=== PATIENT | female | born 1955 | race Caucasian/White ===

== ENCOUNTER 2020-05-20 18:22 | Emergency (ER) | payer MEDICARE, OTHER, SELFPAY ==
[2020-05-20 18:24] VITALS: BP 177/89; PULSE 102; RESP 16; TEMP 36.8; O2SAT 100
[2020-05-20 18:40] VITALS: BP 156/81; PULSE 90; RESP 18; TEMP 36.7; O2SAT 97
[2020-05-20 18:46] LABS: Add Urine Microscopic? YES; Appearance Urine Clear (Clear); Bilirubin Urine Negative (Negative); Blood Urine 3+ (Negative); Color Urine Straw (Yellow); Glucose Urine UA Negative (Negative); Ketones Urine Negative (Negative); Leukocyte Esterase Ur 3+ LEU/UL (Negative); Nitrate Urine Negative (Negative); Protein Urine 1+ mg/dL (Negative); RBC Urine 21-50 /hpf (0-2); Specific Grav Ur 1.009 (1.001-1.035); Squamous Epithelial Cell Urine Rare /hpf (Few); Urobilinogen Urine Negative mg/dL (<2.0); WBC Urine >75 /hpf
--- NOTE | 2020-05-20 19:16 | ED.GENADULT ---
HPI - General Adult General Chief complaint: Urogenital-Female Stated complaint: ?? UTI Time Seen by Provider: 05/20/20 19:09 Source: RN notes reviewed History of Present Illness HPI narrative: Patient presents emergency department from home for dysuria. Patient states that patient is been having dysuria since last night. States it feels like previous urinary tract infections. Denies any fevers or chills abdominal pain nausea vomiting or any other symptoms. Patient denies taking previous medication for the symptoms Related Data Allergies Allergy/AdvReac Type Severity Reaction Status Date / Time adhesive Allergy Unknown Verified 11/24/15 15:40 Iodinated Contrast Media Allergy Unknown Verified 11/24/15 15:40 ioversol Allergy Unknown Verified 05/28/19 10:02 Review of Systems Review of Systems: Narrative: Gen.: Denies fevers or chills ENT: Denies congestion Respiratory: Denies shortness of breath or cough CV: Denies chest pain or palpitations GI: Denies abdominal pain nausea, emesis or diarrhea see HPI Musculoskeletal: Denies back pain or muscle pain Neuro: Denies numbness, tingling, weakness or focal weakness Skin: Denies rash Except as documented, all other systems reviewed and negative [facility] Past Medical History Medical History (Updated 05/20/20 @ 19:19 by Javi Brown DO) Patient denies significant medical history Family History Family History (Updated 05/28/19 @ 09:51 by DOCTOR UNKNOWN) Father Hypertension Family history of diabetes mellitus in first degree relative Family history of throat cancer Patient's father is , Onset Age: 7 Mother Hypertension Family history of malignant neoplasm of cervix Family history of renal failure Family history of kidney disease Sibling Family history of malignant neoplasm of breast in first degree relative Social History Social History (Updated 05/20/20 @ 19:18 by Javi Brown DO) Smoking status: Former smoker Alcohol intake: never Exam Narrative: Exam Narrative: APPEARANCE: No acute distress, nontoxic, resting in bed EYES: EOMI HEENT: Normocephalic, atraumatic, OMM RESPIRATORY: No respiratory distress Clear to auscultation bilaterally with no rhonchi wheezing or rales. CARDIOVASCULAR: Regular rate and rhythm without murmurs rubs or gallops. ABDOMINAL: Soft, nontender, nondistended, no rebound or guarding MUSCULOSKELETAl: Moves all extremities. NEURO: Awake and alert. Following commands, speech normal, no focal deficits SKIN:: Warm, dry. No rashes lesions or abrasions PSYCHIATRIC: Normal affect/mood, Course Course Emergency Course: Discussed with patient results of workup and diagnosis. Discussed need for follow-up with primary care, proper use of medication, and reasons to return to the emergency department. Patient understands and agrees to current treatment plan Vital Signs Vital signs: Vital Signs Temperature 98.2 F 05/20/20 18:24 Pulse Rate 102 H 05/20/20 18:24 Respiratory Rate 16 05/20/20 18:24 Blood Pressure 177/89 H 05/20/20 18:24 Pulse Oximetry 100 05/20/20 18:24 Temperature 98.0 F 05/20/20 18:40 Pulse Rate 90 05/20/20 18:40 Respiratory Rate 18 05/20/20 18:40 Blood Pressure 156/81 H 05/20/20 18:40 Pulse Oximetry 97 05/20/20 18:40 Medical Decision Making Vital Signs Vital Signs: Vital Signs Temperature 98.2 F 05/20/20 18:24 Pulse Rate 102 H 05/20/20 18:24 Respiratory Rate 16 05/20/20 18:24 Blood Pressure 177/89 H 05/20/20 18:24 Pulse Oximetry 100 05/20/20 18:24 Temperature 98.0 F 05/20/20 18:40 Pulse Rate 90 05/20/20 18:40 Respiratory Rate 18 05/20/20 18:40 Blood Pressure 156/81 H 05/20/20 18:40 Pulse Oximetry 97 05/20/20 18:40 Lab Data Labs: Lab Results 05/20/20 Range/Units 18:33 Urine Color Straw (Yellow) Urine Appearance Clear (Clear) Urine pH 7.0 (5.0-9.0) Ur Specific [place] 1.009 (1.001-1.
[2020-05-20] MEDS: NITROFURANTOIN MONOHYD MACROCR 100 MG CAP PO (19:35)
[2020-05-20 19:40] VITALS: BP 138/70; PULSE 78; RESP 20; O2SAT 99
== END 2020-05-20 19:42 | disposition home or self-care (01) ==
PROVIDERS: General Practice; Emergency Provider Emergency Medicine; PCP Emergency Medicine
DX: N39.0 Urinary tract infection, site not specified (principal); Z87.891 Personal history of nicotine dependence
CPT/HCPCS: 81001; 87077; 87086; 87088; 87186; 99283; A9270

== ENCOUNTER 2020-07-03 08:56 | Outpatient (CLI) | payer MEDICARE, OTHER, SELFPAY ==
--- NOTE | ~2020-07-03 | DEXA_ITS ---
Bone Density Report Name: Jeanne Lund Age: 64 Sex: Female Ethnicity: White Date of : 1955 Indication: osteopenia; Referring Provider: Kale, Lamin Romero Study: Bone densitometry was performed. Exam Date: July 03, 2020 Accession number: [id number] Bone Density: Region BMD T-score Z-score Classification AP Spine (L1-L4) 0.789 -2.3 -0.5 Osteopenia Femoral Neck (Left) 0.629 -2.0 -0.4 Osteopenia Total Hip (Left) 0.837 -0.9 0.4 Normal Total Hip Bilateral Avg 0.857 -0.7 0.6 Normal Femoral Neck (Right) 0.632 -2.0 -0.4 Osteopenia Total Hip (Right) 0.875 -0.5 0.7 Normal World Health Organization criteria for BMD impression classify patients as: Normal (T-score at or above -1.0), Osteopenia (T-score between -1.0 and -2.5), or Osteoporosis (T-score at or below -2.5). 10-year Fracture Risk(1): Major Osteoporotic Fracture 10% Hip Fracture 1.5% Reported Risk Factors: [place] (), Neck BMD=0.632, BMI=23.6 (1) FRAX(R) Version 3.08. Fracture probability calculated for an untreated patient. Fracture probability may be lower if the patient has received treatment. Previous Exams: Region Exam Age BMD T-score BMD Change BMD Change Date g/cm2 vs Baseline vs Previous AP Spine(L1-L4) 07/03/2020 64 0.789 -2.3 -0.044(-5.3%)* -0.044(-5.3%)* 04/15/2013 57 0.833 -1.9 Total Hip(Left) 07/03/2020 64 0.837 -0.9 -0.009(-1.0%) -0.009(-1.0%) 04/15/2013 57 0.845 -0.8 Total Hip(Right) 07/03/2020 64 0.875 -0.5 0.004(0.4%) 0.004(0.4%) 04/15/2013 57 0.871 -0.6 *Denotes significance at 95% confidence level, LSC for AP Spine = 0.022 g/cm2, LSC for Total Hip = 0.027 g/cm2 Clinical Information Provided by Patient: Has used the following medications: Vitamin D, Calcium Patient maximum height was 68 Menopause Age: 54 Does not regularly consume dairy products Onset of menses at age 11 Number of children 1 Impression: The patient has low bone mass, based on the Total Spine T-score. The patient has an estimated ten-year risk of hip fracture of 1.5% and an estimated ten-year risk of major fracture of 10%, based on the WHO FRAX algorithm. The BMD for the AP Spine(L1-L4) decreased, changing by -5.3% since the last DXA exam. Discussion: BONE DENSITY IS LOW AT ONE OR MORE SKELETAL SITES. This patient's lowest T-score is low at one or more skeletal sites. It meets the World Health Organization's (WHO) criteria for ?low bone mass? (T-
== END 2020-07-03 08:57 | disposition home or self-care (01) ==
PROVIDERS: PCP Emergency Medicine; Visit Provider Internal Medicine Gastroenterology
DX: K74.3 Primary biliary cirrhosis (principal); M85.88 Other specified disorders of bone density and structure, other site; M85.852 Other specified disorders of bone density and structure, left thigh; M85.851 Other specified disorders of bone density and structure, right thigh
CPT/HCPCS: 77080

== ENCOUNTER 2021-01-25 14:50 | Inpatient (IN) | payer MEDICARE, OTHER, SELFPAY ==
--- NOTE | ~2021-01-25 | CT_ITS ---
EXAMINATION: CT abdomen pelvis wo con EXAM DATE: 01/25/2021 15:26 INDICATION: Right flank pain. TECHNIQUE: Spiral CT of the abdomen and pelvis was performed without contrast. Axial, coronal and sag ittal images were reviewed. The dose-length product (DLP) for this examination was 188.08 mGy-cm. T he exposure was tailored according to patient size (auto mA exposure control), and iterative reconstr uction (ASIR) was used as additional dose reduction technique. Comparison is made to prior examinatio n from 02/09/2014. FINDINGS: There is 2 x 4 mm stone at the right ureterovesicular junction, with mild obstructive nephr opathy. There is a right renal fluid density lesion measuring 2.8 cm, most likely a cyst. There is pu nctate right inferior calyceal stone. The uterus is anteverted and morphologically normal. The merry dder is collapsed at time of imaging limiting evaluation. The liver, spleen, adrenal glands and panc reas are unremarkable. There are cholecystectomy clips. There is no retroperitoneal or pelvic lymph adenopathy. The appendix is normal. The stomach and small bowel are unremarkable. There is expected amount of c olonic stool. No free intraperitoneal gas. The heart is normal in size. There are no pericardial or pleural effusions. The lung bases are unremarkable. The bones are unremarkable. IMPRESSION: 1. Right UVJ 2 x 4 mm stone, mild obstructive nephropathy. 2. Punctate right nephrolithiasis. 3. Hysterectomy, cholecystectomy. . Reviewed, dictated and finalized at location A.
--- NOTE | ~2021-01-25 | XR_ITS ---
XR abdomen/kub 1V DATE: 01/25/2021 15:49 INDICATION: Right flank pain. Right ureterovesical junction 2 x 4 mm calculus TECHNIQUE: AP projection, 2 views COMPARISON: 01/25/[address] abdomen pelvis FINDINGS: There is a calcified calculus of the right ureterovesical junction. Surgical clips, right upper quadrant, consistent with cholecystectomy. The psoas shadows are intact. No visceromegaly is evident. No evidence of bowel obstruction. IMPRESSION: Right ureterovesical junction calcified calculus Reviewed, dictated and finalized at Location A. Reviewed, dictated and finalized at location A.
--- NOTE | ~2021-01-25 | XR_ITS ---
EXAMINATION: XR abdomen/kub 1V DATE: 01/26/2021 06:08 INDICATION: Kidney stone. TECHNIQUE: A supine view of the abdomen was obtained. COMPARISON: CT abdomen and pelvis 01/25/2021 FINDINGS: Surgical clips in the right upper quadrant are likely from cholecystectomy. There are no di lated loops of bowel. There is no visible urolithiasis. IMPRESSION: 1. No visible urolithiasis. Reviewed, dictated and finalized at location A. IMPRESSION: 1. No visible urolithiasis.
--- NOTE | ~2021-01-25 | XR_ITS ---
EXAMINATION: XR fluoroscopy no charge EXAM DATE: 01/26/2021 08:15 INDICATION: Stone extraction right side. TECHNIQUE: Fluoroscopy used during XR fluoroscopy no charge performed by Dr. Chip Cespedes MD. The DAP for this procedure was 92 radcm2. FINDINGS: Right ureter was cannulated and reportedly stone extracted. Cholecystectomy clips. Correla te with procedure note. IMPRESSION: Fluoroscopy used during right ureteral stone extraction. Reviewed, dictated and finalized at location A.
[2021-01-25 14:59] VITALS: BP 144/53; PULSE 65; RESP 16; TEMP 36.5; O2SAT 98
[2021-01-25 15:11] LABS: Add Urine Microscopic? YES; Appearance Urine Cloudy (Clear); Bilirubin Urine Negative (Negative); Blood Urine 1+ (Negative); Color Urine Yellow (Yellow); Glucose Urine UA Negative (Negative); Ketones Urine Negative (Negative); Leukocyte Esterase Ur 2+ LEU/UL (Negative); Mucus Urine Few /lpf; Nitrate Urine Negative (Negative); Protein Urine 1+ mg/dL (Negative); RBC Urine 21-50 /hpf (0-2); Squamous Epithelial Cell Urine Few /hpf (Few); Transitional Epi Cells Urine Rare /hpf (None Seen); WBC Urine 21-30 /hpf
--- NOTE | 2021-01-25 15:14 | ED.GENADULT ---
HPI - General Adult General Chief complaint: Abdominal Pain Stated complaint: r flank pain Time Seen by Provider: 01/25/21 14:54 Source: RN notes reviewed History of Present Illness HPI narrative: Patient presents emergency department from home for right-sided flank pain. Patient states pain began suddenly approximately 1 PM today pain located in the right flank and radiates around to the right side of the abdomen associated with nausea. Denies any fevers or chills chest pain shortness of breath or any other symptoms. States she took no previous pain medication for the symptoms Related Data Home Medications Medication Instructions Recorded Confirmed ursodiol 300 mg capsule See Rx Instructions .ROUTE .COMPLEX 05/27/20 Allergies Allergy/AdvReac Type Severity Reaction Status Date / Time adhesive Allergy Unknown Blister Verified 01/25/21 15:33 Iodinated Contrast Media Allergy Unknown Anxiety Verified 01/25/21 15:33 ioversol Allergy Unknown Unknown Verified 01/25/21 15:33 Review of Systems Review of Systems: Narrative: Gen.: Denies fevers or chills ENT: Denies congestion Respiratory: Denies shortness of breath or cough CV: Denies chest pain or palpitations GI: See HPI denies burning, urgency, frequency or hematuria Musculoskeletal: Denies back pain or muscle pain Neuro: Denies numbness, tingling, weakness or focal weakness Skin: Denies rash Except as documented, all other systems reviewed and negative [facility] Past Medical History Medical History Patient denies significant medical history Family History Family History (Updated 05/28/19 @ 09:51 by DOCTOR UNKNOWN) Father Hypertension Family history of diabetes mellitus in first degree relative Family history of throat cancer Patient's father is , Onset Age: 7 Mother Hypertension Family history of malignant neoplasm of cervix Family history of renal failure Family history of kidney disease Sibling Family history of malignant neoplasm of breast in first degree relative Social History Social History Smoking status: Former smoker Alcohol intake: never Gender identity (if verbalized by the patient): Female Exam Narrative: Exam Narrative: APPEARANCE: No acute distress, nontoxic, resting in bed EYES: EOMI HEENT: Normocephalic, atraumatic, OMM RESPIRATORY: No respiratory distress Clear to auscultation bilaterally with no rhonchi wheezing or rales. CARDIOVASCULAR: Regular rate and rhythm without murmurs rubs or gallops. ABDOMINAL: Soft, nontender, nondistended, no rebound or guarding, right flank tenderness MUSCULOSKELETAl: Moves all extremities. No clubbing, cyanosis or edema. NEURO: Awake and alert. Following commands, speech normal, no focal deficits SKIN:: Warm, dry. No rashes lesions or abrasions PSYCHIATRIC: Normal affect/mood, Course Course Emergency Course: Discussed with Dr. Feliciano for urology presentation work-up at this time recommends admission to his service with admission under Dr. Cespedes Discussed with patient and family results of workup and diagnosis. Discussed need for admission. Patient and family understand and agree to current treatment plan Dr. Feliciano came to the emergency department to evaluate the patient Vital Signs Vital signs: Vital Signs Temperature 97.7 F 01/25/21 14:59 Pulse Rate 65 01/25/21 14:59 Respiratory Rate 16 01/25/21 14:59 Blood Pressure 144/53 H 01/25/21 14:59 Pulse Oximetry 98 01/25/21 14:59 Temperature 97.7 F 01/25/21 14:59 Pulse Rate 74 01/25/21 15:43 Respiratory Rate 18 01/25/21 15:43 Blood Pressure 155/76 H 01/25/21 15:43 Pulse Oximetry 100 01/25/21 15:43 Medical Decision Making Vital Signs Vital Signs: Vital Signs Temperature 97.7 F 01/25/21 14:59 Pulse Rate 65 01/25/21 14:59 Respiratory Rate 16 01/25/21 14:59
--- NOTE | 2021-01-25 15:23 | PC.NURSE ---
Pt taken to CT via stretcher at this time.
[2021-01-25 15:25] LABS: Basophils Percent Auto 0.7 % (0.2-1.2); Eosinophils Absolute Auto 0.1 K/mm3 (0-0.3); Eosinophils Percent Auto 1.3 % (0-4.4); Hematocrit 39.3 % (37.0-47.0); Hemoglobin 13.6 g/dL (12.0-15.0); Immature Granulocyte Absolute 0.01 K/mm3 (0.00-0.031); Immature Granulocyte Percent A 0.2 % (0-0.5); Lymphocytes Absolute Auto 1.91 K/mm3 (0.9-3.2); Mean Corpuscular HGB Conc 34.6 g/dl (32-36); Mean Corpuscular Hemoglobin 31.4 pg (26-34); Mean Corpuscular Volume 90.8 fl (80-100); Mean Platelet Volume 9.4 fl (7.4-10.4); Monocytes Absolute Auto 0.6 K/mm3 (0.1-0.6); Monocytes Percent Auto 9.2 % (2.6-8.5); Neutrophils Absolute Auto 3.4 K/mm3 (1.3-6.7); Neutrophils Percent Auto 56.6 % (45.5-73.1); Platelet Count Result 245 k/mm3 (150-375); Red Blood Count 4.33 M/mm3 (4.2-5.4); Red Cell Distribution Width 11.3 % (11.5-14.5)
[2021-01-25] MEDS: SODIUM CHLORIDE 0.9% IV 1,000 ML 999 ML IV CONT (15:34)
[2021-01-25] MEDS: ONDANSETRON INJ 4 MG/2 ML VIAL IV PUSH (15:35)
[2021-01-25] MEDS: MORPHINE SULFATE (*CRX) 4 MG/ML INJ IV PUSH (15:35)
[2021-01-25 15:39] LABS: Alanine Aminotransferase 23 U/L (4-35); Albumin Level 4.2 g/dL (3.5-5.1); Alkaline Phosphatase 95 U/L (38-126); Anion Gap 5 mmol/L (8-16); Aspartate Amino Transferase 29 U/L (14-36); Bilirubin,Total 0.3 mg/dL (0.2-1.3); Blood Urea Nitrogen 26 mg/dL (7-17); Calcium 9.6 mg/dL (8.4-10.2); Carbon Dioxide 30 mmol/L (22-30); Chloride 104 mmol/L (98-107); Estimated CRCL calculation 79 ml/min; Estimated Glomerular Filt Rate > 60; Glucose 125 mg/dL (65-105); Lipase 212 U/L (23-300); Potassium 3.7 mmol/L (3.4-5.0); Sodium 139 mmol/L (137-145)
[2021-01-25 15:43] VITALS: BP 155/76; PULSE 74; RESP 18; O2SAT 100
[2021-01-25] MEDS: KETOROLAC 30 MG/ML VIAL (*BKC) IV PUSH (15:55)
[2021-01-25] MEDS: TAMSULOSIN HCL 0.4 MG CAPSULE PO (15:55)
--- NOTE | 2021-01-25 16:31 | PM.IMHP ---
H&P: HPI History of Present Illness Date/Time: 01/25/21 16:31 This is a 65 year old female with no prior history of stone disease. She had acute onset of right flank pain this afternoon. She had some nausea without vomiting. She had no fevers, no chills, no symptoms of urinary tract infection. She presented to the emergency room. A CT scan was done. She has a 4 x 2 mm right distal ureteral stone with some hydronephrosis. She also has an abnormal urinalysis but no clear symptoms of infection. Of note she did have a bladder infection a few months ago and was seen here at [place]. She will be admitted overnight for antibiotics and a trial of conservative stone passage. Would consider likely intervention tomorrow should the stone failed to pass considering her abnormal urinalysis Chief Complaint: Ureteral stone Review of Systems Review of Systems: All systems reviewed & are unremarkable except as noted in HPI and below PMFSH Past Medical History Medical History Patient denies significant medical history Family History Family History (Updated 05/28/19 @ 09:51 by DOCTOR UNKNOWN) Father Hypertension Family history of diabetes mellitus in first degree relative Family history of throat cancer Patient's father is , Onset Age: 7 Mother Hypertension Family history of malignant neoplasm of cervix Family history of renal failure Family history of kidney disease Sibling Family history of malignant neoplasm of breast in first degree relative Social History Social History Smoking status: Former smoker Alcohol intake: never Gender identity (if verbalized by the patient): Female Meds Home Medications and Allergies Home Medications Medication Instructions Recorded Confirmed Type ursodiol 300 mg capsule See Rx Instructions .ROUTE .COMPLEX 05/27/20 History nitrofurantoin 100 mg PO Q12H 7 Days #14 cap 12/18/20 Rx monohydrate/macrocrystals 100 mg capsule Allergies Allergy/AdvReac Type Severity Reaction Status Date / Time adhesive Allergy Unknown Blister Verified 01/25/21 15:33 Iodinated Contrast Media Allergy Unknown Anxiety Verified 01/25/21 15:33 ioversol Allergy Unknown Unknown Verified 01/25/21 15:33 Vital Signs Vital Signs - 24 hr 01/25/21 14:59 01/25/21 15:43 Temperature 97.7 F Pulse Rate 65 74 Respiratory Rate 16 18 Blood Pressure 144/53 H 155/76 H Pulse Oximetry 98 100 Exam Const: General: cooperative, healthy appearing, no acute distress, alert, awake and Physically active Nutritional Appearance: thin Orientation/consciousness: patient oriented x3 Limitations: no limitations and No altered mental status HENMT: Head: normal to inspection Ears: hearing grossly normal bilaterally General nose exam: Normal external nose present Eyes: General: appearance normal, both eyes and all related structures Resp: Effort & Inspection: normal respiratory effort and able to speak in complete sentences GI: Inspection: normal to inspection GI Palp: No abdominal tenderness Back/Spine/Pelvis: Back: No CVA tenderness Skin: General skin exam: normal color and no rashes or lesions noted Neuro: General: oriented to person, oriented to place, oriented to time and patient oriented x3 Extrem: General: normal to inspection Psych: Appearance: grossly normal H&P: Results Labs Labs: Short CBC 01/25/21 Range/Units 15:19 WBC 6.0 (4.5-10.0) K/mm3 Hgb 13.6 (12.0-15.0) g/dL Hct 39.3 (37.0-47.0) % Plt Count 245 (150-375) k/mm3 BMP 01/25/21 15:19 Sodium 139 Potassium 3.7 Chloride 104 Carbon Dioxide 30 BUN 26 H Creatinine 0.60 L Glucose 125 H Calcium 9.6 Liver Function 01/25/21 Range/Units 15:19 Total Bilirubin 0.3 (0.2-1.3) mg/dL AST 29 (14-36) U/L ALT 23 (4-35) U/L Alkaline Phosphatase 95 (
[2021-01-25 16:38] VITALS: BP 152/71; PULSE 69; RESP 17; O2SAT 98
[2021-01-25] MEDS: SODIUM CHLORIDE 0.9% IV 1,000 ML 100 ML IV CONT (17:40)
--- NOTE | 2021-01-25 17:45 | PC.NURSE ---
Report called to 3rd Med. ySkes RN to notify this RN when room is clean.
[2021-01-25 17:50] VITALS: BP 146/63; PULSE 77; RESP 14; O2SAT 93
--- NOTE | 2021-01-25 18:14 | PC.NURSE ---
Pt reports pain is increasing, declined morphine prn order at this time.
[2021-01-25 18:43] VITALS: BP 123/43; PULSE 69; RESP 14; O2SAT 97
--- NOTE | 2021-01-25 18:54 | ADMGEN ---
This patient, Jeanne Lund, was admitted to Medical Room 340-01. Patient/family oriented to hospital policies and general routines including ID bracelet, bed and alarms, visiting hours, pain management, procedures, bathroom and other care routines, personal items, smoking policy, room service/diet, and visiting hours. Information on how to activate the Rapid Response Team has been discussed. Patient/Family are encouraged to report perceived risks to care and to ask questions if they do not understand what they are told or what they should do.
[2021-01-25 19:59] VITALS: BP 151/72; PULSE 76; RESP 16; TEMP 36.6; O2SAT 100
[2021-01-26] VITALS (9 sets, daily range): BP systolic 127–148; BP diastolic 60–97; PULSE 65–92; RESP 12–18; TEMP 36–36.7; O2SAT 96–100
[2021-01-26] MEDS: SODIUM CHLORIDE 0.9% IV 1,000 ML 100 ML IV CONT (03:25)
[2021-01-26 05:50] LABS: Basophils Percent Auto 0.7 % (0.2-1.2); Eosinophils Absolute Auto 0.1 K/mm3 (0-0.3); Eosinophils Percent Auto 1.8 % (0-4.4); Hematocrit 35.9 % (37.0-47.0); Hemoglobin 11.8 g/dL (12.0-15.0); Immature Granulocyte Absolute 0.02 K/mm3 (0.00-0.031); Immature Granulocyte Percent A 0.4 % (0-0.5); Lymphocytes Absolute Auto 1.87 K/mm3 (0.9-3.2); Lymphocytes Percent Auto 32.9 % (18.3-44.2); Mean Corpuscular HGB Conc 32.9 g/dl (32-36); Mean Corpuscular Hemoglobin 30.6 pg (26-34); Mean Platelet Volume 9.5 fl (7.4-10.4); Monocytes Absolute Auto 0.5 K/mm3 (0.1-0.6); Monocytes Percent Auto 9.5 % (2.6-8.5); Neutrophils Absolute Auto 3.1 K/mm3 (1.3-6.7); Neutrophils Percent Auto 54.7 % (45.5-73.1); Platelet Count Result 193 k/mm3 (150-375); Red Blood Count 3.86 M/mm3 (4.2-5.4); Red Cell Distribution Width 11.5 % (11.5-14.5); White Blood Count 5.7 K/mm3 (4.5-10.0)
[2021-01-26 06:12] LABS: Anion Gap 0 mmol/L (8-16); Blood Urea Nitrogen 20 mg/dL (7-17); Calcium 8.6 mg/dL (8.4-10.2); Carbon Dioxide 33 mmol/L (22-30); Chloride 108 mmol/L (98-107); Estimated CRCL calculation 61 ml/min; Estimated Glomerular Filt Rate > 60; Glucose 89 mg/dL (65-105); Potassium 4.1 mmol/L (3.4-5.0); Sodium 141 mmol/L (137-145)
--- NOTE | 2021-01-26 06:56 | P.HPUP_ITS ---
History and Physical Update Update Date/Time: 01/26/21 06:56 KUB this morning: stone not visualized but entire ureter not imaged. Will proceed with plans for cysto., right ureteroscopy with stone extraction. History and Physical has been reviewed, including an updated exam of the patie nt. There are NO changes in the patient's condition. Risks, benefits, and alternatives have been discussed and questions answered. Patient agrees to proceed with procedure.
--- NOTE | 2021-01-26 07:17 | WPDANESEPPF ---
Anes - Initial Pre Proc Eval Procedure: Operation Date: 01/26/21 14:00 Proposed Procedures p Cystoscopy,Right Ureteroscopy With Stone Extraction - Chip Cespedes MD Date/Time: 01/26/21 07:17 Surgeon: Chip Cespedes MD Pre Op Diagnosis: R kidney stone/UTI Patient Data Age: 65 Gender: F Height: 1.73 m Weight: 69.8 kg Last Vital Signs Temp 36.4 C 01/26/21 04:08 Pulse 92 01/26/21 04:08 Resp 18 01/26/21 04:08 BP 143/64 H 01/26/21 04:08 Pulse Ox 97 01/26/21 04:08 Allergies Allergy/AdvReac Type Severity Reaction Status Date / Time adhesive Allergy Unknown Blister Verified 01/25/21 15:33 Iodinated Contrast Media Allergy Unknown Anxiety Verified 01/25/21 19:00 ioversol Allergy Unknown Unknown Verified 01/25/21 15:33 Home Medications Medication Instructions Recorded Confirmed Type ursodiol 300 mg capsule See Rx Instructions .ROUTE .COMPLEX 05/27/20 01/25/21 History hydrocodone-acetaminophen 1 - 2 tablet PO Q6H PRN #20 tablet 01/26/21 Rx tramadol 50 mg PO Q6H PRN #20 tablet 01/26/21 Rx Laboratory Tests 01/25/21 01/25/21 01/25/21 15:01 15:19 15:19 WBC 6.0 K/mm3 K/mm3 (4.5-10.0) RBC 4.33 M/mm3 M/mm3 (4.2-5.4) Hgb 13.6 g/dL g/dL (12.0-15.0) Hct 39.3 % % (37.0-47.0) MCV 90.8 fl fl (80-100) MCH 31.4 pg pg (26-34) MCHC 34.6 g/dl g/dl (32-36) RDW 11.3 % L % (11.5-14.5) Plt Count 245 k/mm3 k/mm3 (150-375) MPV 9.4 fl fl (7.4-10.4) Immature Gran % (Auto) 0.2 % % (0-0.5) Neut % (Auto) 56.6 % % (45.5-73.1) Lymph % (Auto) 32.0 % % (18.3-44.2) [place] % (Auto) 9.2 % H % (2.6-8.5) Eos % (Auto) 1.3 % % (0-4.4) Baso % (Auto) 0.7 % % (0.2-1.2) Lymph # (Auto) 1.91 K/mm3 K/mm3 (0.9-3.2) [place] # (Auto) 0.6 K/mm3 K/mm3 (0.1-0.6) Eos # (Auto) 0.1 K/mm3 K/mm3 (0-0.3) Baso # (Auto) 0.0 K/mm3 K/mm3 (0.0-0.1) Abs Immat Gran (auto) 0.01 K/mm3 K/mm3 (0.00-0.031) Absolute Neuts (auto) 3.4 K/mm3 K/mm3 (1.3-6.7) Absolute Nucleated RBC 0.0 K/mm3 K/mm3 (0.0-0.012) Nucleated RBC % 0.0 % % (0.0-0.2) Sodium 139 mmol/L mmol/L (137-145) Potassium 3.7 mmol/L mmol/L (3.4-5.0) Chloride 104 mmol/L mmol/L (98-107) Carbon Dioxide 30 mmol/L mmol/L (22-30) Anion Gap 5 mmol/L L mmol/L (8-16) BUN 26 mg/dL H mg/dL (7-17) Creatinine 0.60 mg/dL L mg/dL (0.7-1.0) Estim Creat Clear Calc 79 ml/min ml/min Estimated GFR > 60 (59 - ) Glucose 125 mg/dL H mg/dL (65-105) Calcium 9.6 mg/dL mg/dL (8.4-10.2) Total Bilirubin 0.3 mg/dL mg/dL (0.2-1.3) AST 29 U/L U/L (14-36) ALT 23 U/L U/L (4-35) Alkaline Phosphatase 95 U/L U/L (38-126) Total Protein 7.0 g/dL g/dL (6.3-8.2) Albumin 4.2 g/dL g/dL (3.5-5.1) Lipase 212 U/L U/L (23-300) Urine Color Yellow (Yellow) Urine Appearance Cloudy H (Clear) Urine pH 5.0 (5.0-9.0) Ur Specific [place] 1.020 (1.001-1.035) Urine Protein 1+ mg/dL H mg/dL (Negative) Urine Glucose (UA) Negative mg/dL mg/dL (Negative) Urine Ketones Negative mg/dL mg/dL (Negative) Ur Blood (Man) 1+ H (Negative) Urine Nitrate Negative (Negative) Urine Bilirubin Negative (Negative) Urine Urobilinogen 2.0 mg/dL H mg/dL (<2.0) Leukocyte Esterase Rfl 2+ ARETHA/UL H ARETHA/UL (Negative) Urine RBC 21-50 /hpf H /hpf (0-2) Urine WBC 21-30 /hpf H /hpf Ur Squamous Epith Cells Few /hpf /hpf (Few) Ur Transition Epith Cell Rare /hpf /hpf (None Seen) Hyaline Casts 1-2 /lpf
--- NOTE | 2021-01-26 07:29 | ECG_ITS ---
Measurements Intervals [place] Rate: 78 P: 76 OK: 166 QRS: 51 QRSD: 94 T: 7 QT: 376 QTc: 431 Interpretive Statements SINUS RHYTHM POSSIBLE LEFT ATRIAL ENLARGEMENT BORDERLINE ST-T WAVE ABNORMALITY- INF/LAT LEADS BORDERLINE ECG Electronically Signed On 01-26-2021 8:07:59 CDT by Billy Lee D.O.
[2021-01-26] MEDS: LACTATED RINGERS 1,000 ML 30 ML IV CONT (07:45)
[2021-01-26] MEDS: LIDOCAINE HCL 2% GEL UROJET 10 ML PKG MUCOUS MEM (07:57)
[2021-01-26] MEDS: KETOROLAC 30 MG/ML VIAL (*BKC) IV PUSH (08:11)
--- NOTE | 2021-01-26 08:12 | P.OP_ITS ---
Procedure Note - Detailed Date of procedure: 01/26/21 Pre-op diagnosis: Right ureteral stone Post-op diagnosis: same Procedure performed: Cystoscopy, right ureteroscopy with stone extraction Description of procedure: The patient was brought to the operative suite where she is prepped and draped in a routine sterile fashion while in the dorsal lithotomy position after the uneventful induction of a general LMA anesthetic. A 19F rigid cystoscope was placed in the bladder. The patient had no evidence of urethral stricture or bladder neck contracture. The bladder mucosa was endoscopically normal without hyperemia or neoplasm. There was a single, orthotopic ureteral orifice bilaterally. A 0.035 glidewire was advanced into the right renal pelvis under fluoroscopy. The distal ureter was dilated with an 8F/10F ureteral dilator. Ureteroscopy was undertaken with a short, tapered, semi-rigid ureteroscope and the stone was extracted with ease using a 1.9F Escape disposable stone basket. Due to the ease of this manipulation I opted n ot to place a ureteral stent. The patient's bladder was emptied and was taken to the recovery room having tolerated this procedure well. Anesthesia: GLMA Surgeon: Chip Cespedes MD Drains: No Packing: No Pathology: yes Complications: No immediate complications Condition: stable Disposition: PACU
--- NOTE | 2021-01-26 08:18 | PM.DS ---
DS: Admitting Diagnosis Admitting Diagnosis Admitting Diagnosis: Right distal ureteral calculus DS: Summary Hospital Course Hospital Course: patient was admitted to the ER late on Monday afternoon with renal colic and imaging showing a small distal ureteral calculus. She had a possible UTI. She was given ceftriaxone. She never developed fevers significant leukocytosis. The following morning she underwent endoscopic stone extraction. This was straightforward and a stent was not placed. Time Spent with Patient Time attestation: Total time spent providing and/or coordinating discharge services: 15min Exam Const: General: no acute distress Resp: Effort & Inspection: normal respiratory effort GI: Inspection: non-distended GI Palp: No abdominal tenderness and No Guarding due to palpation present (GI) Auscultation: normal bowel sounds DS: Data Data Completed and Pending Pending studies at discharge: Pending at discharge 01/26/21 08:05 Surgical [PTH] Routine Labs on day of discharge: Labs from last 24 hours 01/26/21 01/26/21 01/25/21 05:32 05:32 15:19 WBC 5.7 RBC 3.86 L Hgb 11.8 L Hct 35.9 L MCV 93.0 MCH 30.6 MCHC 32.9 RDW 11.5 Plt Count 193 MPV 9.5 Immature Gran % (Auto) 0.4 Neut % (Auto) 54.7 Lymph % (Auto) 32.9 Randolph % (Auto) 9.5 H Eos % (Auto) 1.8 Baso % (Auto) 0.7 Lymph # (Auto) 1.87 Randolph # (Auto) 0.5 Eos # (Auto) 0.1 Baso # (Auto) 0.0 Abs Immat Gran (auto) 0.02 Absolute Neuts (auto) 3.1 Absolute Nucleated RBC 0.0 Nucleated RBC % 0.0 Sodium 141 139 Potassium 4.1 3.7 Chloride 108 H 104 Carbon Dioxide 33 H 30 Anion Gap 0 L 5 L BUN 20 H 26 H Creatinine 0.80 0.60 L Estim Creat Clear Calc 61 79 Estimated GFR > 60 > 60 Glucose 89 125 H Calcium 8.6 9.6 Total Bilirubin 0.3 AST 29 ALT 23 Alkaline Phosphatase 95 Total Protein 7.0 Albumin 4.2 Lipase 212 Urine Color Urine Appearance Urine pH Ur Specific Lamar Urine Protein Urine Glucose (UA) Urine Ketones Ur Blood (Man) Urine Nitrate Urine Bilirubin Urine Urobilinogen Leukocyte Esterase Rfl Urine RBC Urine WBC Ur Squamous Epith Cells Ur Transition Epith Cell Hyaline Casts Urine Mucus 01/25/21 01/25/21 15:19 15:01 WBC 6.0 RBC 4.33 Hgb 13.6 Hct 39.3 MCV 90.8 MCH 31.4 MCHC 34.6 RDW 11.3 L Plt Count 245 MPV 9.4 Immature Gran % (Auto) 0.2 Neut % (Auto) 56.6 Lymph % (Auto) 32.0 Randolph % (Auto) 9.2 H Eos % (Auto) 1.3 Baso % (Auto) 0.7 Lymph # (Auto) 1.91 Randolph # (Auto) 0.6 Eos # (Auto) 0.1 Baso # (Auto) 0.0 Abs Immat Gran (auto) 0.01 Absolute Neuts (auto) 3.4 Absolute Nucleated RBC 0.0 Nucleated RBC % 0.0 Sodium Potassium Chloride Carbon Dioxide Anion Gap BUN Creatinine Estim Creat Clear Calc Estimated GFR Glucose Calcium Total Bilirubin AST ALT Alkaline Phosphatase Total Protein Albumin Lipase Urine Color Yellow Urine Appearance Cloudy H Urine pH 5.0 Ur Specific Lamar 1.020 Urine Protein 1+ H Urine Glucose (UA) Negative Urine Ketones Negative Ur Blood (Man) 1+ H Urine Nitrate Negative Urine Bilirubin Negative Urine Urobilinogen 2.0 H Leukocyte Esterase Rfl 2+ H Urine RBC 21-50 H Urine WBC 21-30 H Ur Squamous Epith Cells Few Ur Transition Epith Cell Rare Hyaline Casts 1-2 Urine Mucus Few H Discharge Plan Discharge Attending physician on discharge: Chip Cespedes Discharging Clinician: Chip Cespedes Anticipated Discharge Date/Time: 01/26/21 06:58 Patient Disposition: Home, Self-Care Activity: other - see discharge instructions Diet: other - see discharge instructions Discharge Instructions: 1) Activity: no driving or important decisions x24 hours. 2) Diet: resume your norm
== END 2021-01-26 11:18 | disposition home or self-care (01) | DRG 669 ==
LOC: ANHED 16:33 → ANH3MED 17:37
PROVIDERS: Admitting Provider Urology; Emergency Provider Emergency Medicine; PCP Emergency Medicine; Visit Provider Urology
PROC: 0TC68ZZ Extirpation of Matter from Right Ureter, Via Natural or Artificial Opening Endoscopic (ICD-10-PCS; CPT 52352; principal; 2021-01-26 14:00)
DX: N20.1 Calculus of ureter (principal); N39.0 Urinary tract infection, site not specified; Z87.891 Personal history of nicotine dependence
CPT/HCPCS: 36415; 74018; 74176; 80048; 80053; 81001; 82365; 83690; 85025; 87086; 88300; 93005; 96361; 96374; 96375; 99285; A9270; C1769; J0696; J1100; J1885; J2270; J2405; J2704; J3010; J7030; J7120

== ENCOUNTER 2021-10-26 09:38 | Outpatient (CLI) | payer MEDICARE, OTHER, SELFPAY ==
--- NOTE | ~2021-10-26 | XR_ITS ---
EXAMINATION: XR abdomen/kub 1V EXAM DATE: 10/26/2021 10:03 INDICATION: History of kidney stones months ago. Follow-up exam. TECHNIQUE: Frontal projection of the upper abdomen, frontal projection lower abdomen/pelvis for inter pretation. Comparison is made to prior examination from 01/26/2021. FINDINGS: There is moderate amount of colonic stool and gas. No small bowel dilation, nonobstructiv e bowel gas pattern. There are no suspicious calcifications identified. There is no organomegaly suspected. The bones are unremarkable. Lung bases unremarkable. There are cholecystectomy clips. IMPRESSION: Moderate amount of colonic stool. Reviewed, dictated and finalized at location B. 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
== END 2021-10-26 09:39 | disposition home or self-care (01) ==
PROVIDERS: PCP Emergency Medicine; Visit Provider Urology
DX: Z87.442 Personal history of urinary calculi (principal)
CPT/HCPCS: 74018

== ENCOUNTER → 2022-07-12 08:41 | Outpatient (CLI) | payer MEDICARE, OTHER, SELFPAY ==
--- NOTE | ~2022-07-12 | DEXA_ITS ---
Bone Density Report Name: BYRON FERNANDES Age: 66 Sex: Female Ethnicity: White Date of : 1955 Indication: postmenopausal; screening for osteoporosis; height loss; Referring Provider: DOUG, POLY Romero Study: Bone densitometry was performed. Exam Date: July 12, 2022 Accession number: [id number] Bone Density: Region BMD T-score Z-score Classification AP Spine (L1-L4) 0.800 -2.2 -0.3 Osteopenia Femoral Neck (Left) 0.626 -2.0 -0.4 Osteopenia Total Hip (Left) 0.798 -1.2 0.2 Osteopenia Femoral Neck (Right) 0.642 -1.9 -0.2 Osteopenia Total Hip (Right) 0.828 -0.9 0.4 Normal Total Hip Mean 0.813 -1.1 0.3 Osteopenia World Health Organization criteria for BMD impression classify patients as: Normal (T-score at or above -1.0), Osteopenia (T-score between -1.0 and -2.5), or Osteoporosis (T-score at or below -2.5). 10-year Fracture Risk(1): Major Osteoporotic Fracture 11% Hip Fracture 1.8% Reported Risk Factors: [place] (), Neck BMD=0.626, BMI=23.8 (1) FRAX(R) Version 3.08. Fracture probability calculated for an untreated patient. Fracture probability may be lower if the patient has received treatment. Clinical Information Provided by Patient: Has used the following medications: Vitamin D, Calcium, ursodiol Patient maximum height was 68.5 Menopause Age: 54 Does not regularly consume dairy products Drinks caffeinated beverages Onset of menses at age 11 Number of children 1 Impression: The patient has low bone mass, based on the Total Spine T-score. The patient has an estimated ten-year risk of hip fracture of 1.8% and an estimated ten-year risk of major fracture of 11%, based on the WHO FRAX algorithm. Discussion: BONE DENSITY IS LOW AT ONE OR MORE SKELETAL SITES. This patient's lowest T-score is low at one or more skeletal sites. It meets the World Health Organization's (WHO) criteria for ?low bone mass? (T-score between -1.0 and -2.5). The patient's 10-year risk of fracture as calculated by FRAX is less than the threshold where pharmacological therapy is recommended by the National Osteoporosis Foundation (NOF). However, all treatment decisions require clinical judgment and consideration of individual patient factors, including patient preferences, comorbidities, previous drug use, risk factors not captured in the FRAX model (e.g., frailty, falls, vitamin D deficiency, increased bone turnover, interval significant decline in bone density) and possible under or overestimation of fracture risk by FRAX. The patient should follow a healthful lifestyle (good nutrition with adequate calcium and vitamin D, and appropriate weight-bearing exercise). Follow-Up: Consider repeating this study in 2 to 3 years to reassess this patient's status, or sooner if there is some new clinical indication.
== END ==
PROVIDERS: PCP Internal Medicine; Visit Provider Internal Medicine Gastroenterology
DX: K74.3 Primary biliary cirrhosis (principal); M85.88 Other specified disorders of bone density and structure, other site; M85.852 Other specified disorders of bone density and structure, left thigh; M85.851 Other specified disorders of bone density and structure, right thigh
CPT/HCPCS: 77080

== ENCOUNTER 2022-10-25 09:26 | Outpatient (CLI) | payer MEDICARE, OTHER, SELFPAY ==
--- NOTE | ~2022-10-25 | XR_ITS ---
Supine and upright views of the abdomen Clinical history: Right nephrolithiasis COMPARISON: 10/26/2021 Findings: Bowel gas pattern is nonspecific. Cholecystectomy clips noted. No evidence for obstruction or free air. No abnormal mass lesion or calcification is seen. Osseous structures are intact. Impression: No renal stone identified. Reviewed, dictated and finalized at location [] MOLDING MACHINE OPERATOR Impression: No renal stone identified.
== END 2022-10-25 09:27 | disposition home or self-care (01) ==
PROVIDERS: PCP Internal Medicine; Visit Provider Urology
DX: N20.0 Calculus of kidney (principal)
CPT/HCPCS: 74018

== ENCOUNTER 2023-01-05 10:20 | Observation (INO) | payer MEDICARE, OTHER, SELFPAY ==
[2023-01-05] VITALS (38 sets, daily range): BP systolic 130–192; BP diastolic 70–100; PULSE 76–103; RESP 12–27; TEMP 36.3–36.9; O2SAT 97–100; BMI 23.6
--- NOTE | 2023-01-05 | ECHO_ITS ---
Patient Info Name: Jeanne Lund Age: 67 years : 1955 Gender: Female Ht: 68 in Wt: 155 lbs BSA: 1.84 m2 HR: 97 bpm BP: 163 / 85 mmHg Technical Quality: Good Exam Date: 01/05/2023 2:48 PM Exam Location: [facility] Pulmonary Exam Room: ED 2 Patient Status: Outpatient Admit Date: 01/05/2023 Staff Ordering Physician: Esperanza Quintana NP Office Nurse Practitioner: Jenny Bond RDCS Attending Provider: Liz Tomlinson DO Referring Physician: Lilian COX; Exam Type: CA echo doppler w bubble study Study Info Indications - TIA Complete two-dimensional, color flow and Doppler transthoracic echocardiogram is performed with agitated saline. Contrast/Agitated Saline Contrast/Ag. Saline: Agitated Saline Amount: 20.00 ml Administered By: Lizette Gonzalez RDCS Existing IV Access: Yes IV Access Condition: patent with no signs of infiltration Summary 1. Left ventricular chamber dimension is normal. 2. Left ventricular systolic function is hyperdynamic, estimated at >70%. 3. The left ventricular diastolic function is grade I diastolic dysfunction. 4. E/e' 11 is mildly elevated. 5. There is moderate aortic valve sclerosis. 6. There is trace tricuspid valve regurgitation. 7. No pulmonary hypertension, estimated pulmonary arterial systolic pressure is 28 mmHg. 8. There is trivial pericardial effusion. Left Ventricle E/e' 11 is mildly elevated. Left ventricular chamber dimension is normal. Left ventricular systolic function is hyperdynamic, estimated at >70%. The left ventricular diastolic function is grade I diastolic dysfunction. Right Ventricle Right ventricular chamber dimension is normal. Right ventricular systolic function is normal. Left Atria Left atrial chamber dimension is normal. Right Atria Right atrial chamber dimension is normal. Atrial Septum Agitated saline injection with and without valsalva maneuver opacified right side cardiac chambers without shunt to left side cardiac chambers. Intact interatrial septum visualized by 2D and agitated saline imaging. Aortic Valve The aortic valve is trileaflet. There is moderate aortic valve sclerosis. There is no aortic valve stenosis. There is no aortic valve regurgitation. Pulmonic Valve There is no pulmonic regurgitation. Mitral Valve There is no mitral valve stenosis. There is no mitral valve regurgitation. Tricuspid Valve There is trace tricuspid valve regurgitation. No pulmonary hypertension, estimated pulmonary arterial systolic pressure is 28 mmHg. Pericardium/Pleural There is trivial pericardial effusion. Inferior Vena Cava Normal inferior vena cava with >50% collapse upon inspiration consistent with normal right atrial pressure, 5 mmHg. Aorta The aortic root size at the sinus of Valsalva is normal. Left Ventricular Outflow Tract Name Value Normal LVOT 2D LVOT Diameter 2.0 cm LVOT Doppler LVOT Peak Gradient 8 mmHg LVOT Mean Gradient 5 mmHg LVOT VTI 27 cm
--- NOTE | ~2023-01-05 | US_ITS ---
EXAMINATION: US carotid duplex BI DATE: 01/05/2023 18:17 INDICATION: Syncope. TECHNIQUE: Grayscale, color Doppler, and pulsed Doppler images of the cervical carotid arteries were obtained. The degree of vessel stenosis is placed in one of the following categories: normal, <50%, 5 0-69%, >=70% but less than near-occlusion, near-occlusion, or total occlusion. Note that percent sten osis relative to normal distal artery lumen diameter is indirectly measured from velocity measurement s as described by Jamal, et al. Radiology 2003; 229:340-346. COMPARISON: None. FINDINGS: RIGHT: The right common carotid artery (CCA) peak systolic velocity (PSV) is 106 cm/s. The right internal ca rotid artery (ICA) PSV is 72 cm/s. The right ICA end-diastolic velocity (EDV) is 26 cm/s. The right I CA/CCA PSV ratio is 0.7. Grayscale and color Doppler images yield an estimate of 0% diameter reductio n from plaque in the ICA. There is antegrade flow in the right vertebral artery. LEFT: The left CCA PSV is 106 cm/s. The left ICA PSV is 77 cm/s. The left ICA EDV is 23 cm/s. The left ICA/ CCA PSV ratio is 0.7. Grayscale and color Doppler images yield an estimate of 0% diameter reduction f rom plaque in the ICA. There is antegrade flow in the left vertebral artery. IMPRESSION: 1. Normal internal carotid arteries. Reviewed, dictated and finalized at location A. ESSOR OF FRENCH
--- NOTE | ~2023-01-05 | CT_ITS ---
EXAMINATION: CT brain wo con DATE: 01/05/2023 11:29 INDICATION: Headache. Hypertension. Dizziness. TECHNIQUE: Computed tomography (CT) of the head was performed without intravenous contrast. The dose- length product was 529.67 mGy-cm. Automated exposure control and iterative reconstruction technique w ere employed. COMPARISON: None FINDINGS: There is a chronic infarct of the right frontal lobe. Mild generalized atrophy. There are s cattered mild periventricular and subcortical white matter changes, most likely related to small vess el ischemic disease (microangiopathy). No acute infarction, hemorrhage, mass or mass effect. There is intracranial atherosclerosis. IMPRESSION: 1. No acute intracranial abnormality. 2: Chronic right frontal lobe infarction. 2: Chronic age-related findings. Reviewed, dictated and finalized at location L. OYMENT OFFICE CLERK
--- NOTE | ~2023-01-05 | XR_ITS ---
EXAMINATION: XR chest 2V DATE: 01/05/2023 10:50 INDICATION: Chest pain and dizziness TECHNIQUE: PA and lateral views of the chest were obtained. COMPARISON: Chest radiograph dated 12/20/2018 FINDINGS: The lungs remain clear with no focal airspace opacities, pulmonary edema, pleural effusion or pneumot horax. The cardiomediastinal silhouette is normal. Cholecystectomy clips in right upper quadrant. Mil d thoracic dextrocurvature with mild to moderate spondylosis. IMPRESSION: 1. No acute cardiopulmonary disease. Reviewed, dictated and finalized at location A. ANICAL SPECIALIST
--- NOTE | ~2023-01-05 | MR_ITS ---
EXAMINATION: MR brain/brain stem wo con DATE: 01/05/2023 17:18 INDICATION: Headache. Dizziness. TECHNIQUE: Magnetic resonance imaging (MRI) of the brain and brainstem was performed without intraven ous contrast. COMPARISON: Head CT 01/05/2023 FINDINGS: There is no intracranial hemorrhage, acute infarction, or abnormal intracranial mass lesion . There are prominent perivascular spaces in right frontal lobe. The ventricles are normal in size. T he mastoid air cells are normal. There is mild mucosal thickening in the ethmoid sinuses. The orbits are normal. IMPRESSION: 1. Normal brain. Reviewed, dictated and finalized at location A. K BODY BUILDER APPRENTICE IMPRESSION: 1. Normal brain.
--- NOTE | 2023-01-05 10:24 | ECG_ITS ---
Measurements Intervals [place] Rate: 93 P: 69 [place]: 137 QRS: 45 QRSD: 89 T: 11 QT: 336 QTc: 420 Interpretive Statements SINUS RHYTHM LEFT ATRIAL ENLARGEMENT [-0.15mV P WAVE IN V1/V2] BORDERLINE ECG COMPARED TO ECG 01/26/2021 07:43:04 NO SIGNIFICANT CHANGES Electronically Signed On 01-05-2023 12:07:11 RELIGIOUS EDUCATOR by Kermit Kirkland M.D.
[2023-01-05 10:42] LABS: Basophils Percent Auto 0.5 % (0.2-1.2); Eosinophils Absolute Auto 0.1 K/mm3 (0-0.3); Eosinophils Percent Auto 0.9 % (0-4.4); Hematocrit 42.6 % (37.0-47.0); Hemoglobin 14.2 g/dL (12.0-15.0); Immature Granulocyte Absolute 0.01 K/mm3 (0.00-0.031); Immature Granulocyte Percent A 0.2 % (0-0.5); Mean Corpuscular HGB Conc 33.3 g/dl (32-36); Mean Corpuscular Hemoglobin 30.7 pg (26-34); Mean Platelet Volume 9.2 fl (7.4-10.4); Monocytes Absolute Auto 0.6 K/mm3 (0.1-0.6); Monocytes Percent Auto 9.5 % (2.6-8.5); Neutrophils Percent Auto 46.9 % (45.5-73.1); Platelet Count Result 231 k/mm3 (150-375); Red Blood Count 4.63 M/mm3 (4.2-5.4); Red Cell Distribution Width 11.9 % (11.5-14.5); White Blood Count 6.4 K/mm3 (4.5-10.0)
[2023-01-05 10:54] LABS: Alanine Aminotransferase 32 U/L (6-35); Albumin Level 4.6 g/dL (3.5-5.1); Alkaline Phosphatase 126 U/L (38-126); Anion Gap 3 mmol/L (8-16); Aspartate Amino Transferase 38 U/L (14-36); Bilirubin,Total 0.7 mg/dL (0.2-1.3); Blood Urea Nitrogen 20 mg/dL (7-17); Calcium 9.1 mg/dL (8.4-10.2); Carbon Dioxide 31 mmol/L (22-30); Chloride 99 mmol/L (98-107); Estimated CRCL calculation 91 ml/min; Estimated Glomerular Filt Rate > 60; Glucose 94 mg/dL (65-110); Lipase 221 U/L (23-300); Potassium 4.1 mmol/L (3.4-5.0); Sodium 133 mmol/L (137-145)
[2023-01-05 10:56] LABS: Prothrombin Time 12.5 Seconds (11.1-14.7)
[2023-01-05 10:57] LABS: Partial Thromboplastin Time 27.3 SECONDS (22.3-36.8)
--- NOTE | 2023-01-05 11:09 | ED.ARRPALP ---
HPI - Arrhythmia/Palpitations General Chief Complaint: Arrhythmia/Palpitations <Aliyah Yoo PA-C - Last Filed: 01/05/23 15:41> Stated Complaint: dizziness/palp <CARINE Desouza Last Filed: 01/05/23 15:41> Time Seen by Provider: 01/05/23 10:38 <CARINE Desouza Last Filed: 01/05/23 15:41> Source: patient <CARINE Desouza Last Filed: 01/05/23 15:41> Mode of arrival: ambulatory <CARINE Desouza Last Filed: 01/05/23 15:41> Limitations: no limitations <CARINE Desouza Last Filed: 01/05/23 15:41> History of Present Illness HPI narrative: This is a 67 year old female that presents to the ER for intermittent lightheadedness noted today. Reports brief episodes of lightheadedness. Reports she has been monitoring her blood pressure recently because she feels off . Reports some headaches and feelings of palpitations. Reports blood pressure has been elevated. She does not currently take any medications for her blood pressure. Reports some shortness of breath. Denies chest pain or lower extremity edema. <CARINE Desouza Last Filed: 01/05/23 15:41> Related Data Home Medications: Home Medications Medication Instructions Recorded Confirmed ursodiol 300 mg capsule 600 mg PO BID 03/08/22 01/05/23 <CARINE Desouza Last Filed: 01/05/23 15:41> Allergies/Adverse Reactions: Allergies Allergy/AdvReac Type Severity Reaction Status Date / Time adhesive Allergy Unknown Blister Verified 01/05/23 11:17 Iodinated Contrast Media Allergy Unknown Anxiety Verified 01/05/23 11:17 ioversol Allergy Unknown Unknown Verified 01/05/23 11:17 <CARINE Desouza Last Filed: 01/05/23 15:41> Review of Systems Review of Systems: CONSTITUTIONAL: Denies fever EYES: Denies visual changes CARDIOVASCULAR: Reports palpitations. Denies chest pain, or edema. RESPIRATORY: Denies dyspnea. GASTROINTESTINAL: Denies vomiting NEUROLOGIC: Denies numbness, or weakness. <Aliyah Yoo PA-C - Last Filed: 01/05/23 15:41> All systems reviewed & are unremarkable except as noted in HPI and below <Aliyah Yoo PA-C - Last Filed: 01/05/23 15:41> [facility] Past Medical History Medical History: Medical History Biliary liver cirrhosis Dizziness Encounter for Papanicolaou smear for cervical cancer screening HTN (hypertension) with goal to be determined Kidney stone on right side Palpitation Screening mammogram, encounter for <Aliyah Yoo PA-C - Last Filed: 01/05/23 15:41> Surgical History Surgical History: Surgical History (Updated 01/05/23 @ 17:06 by Esperanza Quintana NP) H/O knee surgery 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
[2023-01-05 11:13] LABS: Troponin I < 0.012 ng/mL (0.000-0.034)
--- NOTE | 2023-01-05 11:23 | PC.NURSE ---
Pt off floor to CT scan
--- NOTE | 2023-01-05 11:38 | PC.NURSE ---
Spoke with DENNIS Ly, no need for protocol aspirin at this time.
[2023-01-05 13:01] LABS: Influenza A QL RT-PCR Negative (Negative); Influenza B QL RT-PCR Negative (Negative); RSV RNA, RT-PCR Negative (Negative); SARS-CoV-2 RNA PCR Negative
--- NOTE | 2023-01-05 13:44 | PM.IMHP ---
H&P: HPI History of Present Illness Date/Time: 01/05/23 13:44 Chief Complaint: Dizziness and palpitations Narrative: This is a 67-year-old female patient who has been complaining of intermittent dizziness. The patient stated that she has been monitoring her blood pressure for the last week and stated that it is been high at least 160/90. The patient does not take any blood pressure medication and has not called her primary care doctor. The patient stated that she is not having any chest pain or any lower extremity edema but she does feel short of breath at times. The patient does appear very anxious at this time. The patient has no focal weakness or any slurred speech. No facial droop is noted. Head CT was read as the following1. No acute intracranial abnormality. 2: Chronic right frontal lobe infarction. 2:? Chronic age-related findings. The patient was started on an aspirin. Chest x-ray was read as no acute cardiopulmonary disease. Neurology has been consulted. The only complaint that the patient has is a headache. The patient stated she only ate a piece of toast today. And she sees to caffeine and has not had any caffeine today. Sodium 133. Troponins are nonreactive x3. Influenza a B RSV and COVID are all negative. The patient was given aspirin and hydralazine in the emergency room. The patient is being admitted to observation status on the date of service of 01/05/2023. Review of Systems Review of Systems: See HPI All systems reviewed & are unremarkable except as noted in HPI and below Constitutional: Constitutional: Reports as per HPI and Reports no additional constitutional complaints Eyes: Eyes: Reports as per HPI and Reports no additional eye complaints ENT: Reports system reviewed and no additional complaints, except as documented and Reports Normal hearing present Cardiovascular: Cardiovascular: Reports no additional cardiovascular complaints Respiratory: Respiratory: Reports no additional respiratory complaints and Reports no additional respiratory complaints Gastrointestinal: Gastrointestinal: Reports as per HPI and Reports no additional gastrointestinal complaints Musculoskeletal: Musculoskeletal: Reports no additional musculoskeletal complaints Integumentary/Breasts: Skin/Breast: Reports system reviewed and no additional complaints, except as docu and Reports as per HPI Neurologic: Reports system reviewed and no additional complaints, except as documented, Reports as per HPI and Reports Normal hearing present Psychiatric: Psychiatric: Reports no additional psychiatric complaints and Reports as per HPI Endocrine: Endocrine: Reports no additional endocrine complaints Hematologic/Lymphatic: Hematologic/Lymphatic: Reports no additional hematologic/lymphatic complaints Allergic/Immunologic: Allergic/Immunologic: Reports no additional allergic/immunologic complaints PMFSH Past Medical History Medical History Biliary liver cirrhosis Dizziness Encounter for Papanicolaou smear for cervical cancer screening HTN (hypertension) with goal to be determined Kidney stone on right side Palpitation Screening mammogram, encounter for Surgical History Surgical History (Updated 01/05/23 @ 17:06 by Esperanza Quintana NP) H/O knee surgery 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
--- NOTE | 2023-01-05 14:29 | WPDNEURCNPN ---
Consult date: 01/05/23 HPI: Jeanne Lund is a 67 year old female admitted to the hospital through the emergency room for the complaints of intermittent lightheadedness though she does not currently take any medication for hypertension but she also complains of mild shortness of breath, and palpitation. Her medications included ursodiol 600 mg b.i.d., she does have a history of biliary hepatic cirrhosis, right renal stone, being a former smoker, no alcohol intake, and initial examination in the emergency room with no abnormal findings, vital signs was blood pressure of 192/73 normal CBC fairly normal basic metabolic panel and normal labs otherwise, CT scan of the head with no bleed though chronic age-related findings and also chronic right frontal lobe infarction. [facility] Past Medical History Medical History (Updated 01/05/23 @ 13:46 by Esperanza Quintana NP) Biliary liver cirrhosis Dizziness Encounter for Papanicolaou smear for cervical cancer screening HTN (hypertension) with goal to be determined Kidney stone on right side Palpitation Screening mammogram, encounter for Surgical History Surgical History History of dilation and curettage 03/17/04 hscope d&c/dx lscope--menometrorrhagia/pelvic pain 06/08/06 hscope d&c--postmenopausal bleeding, endometrial hypertrophy History of endometrial ablation History of laparoscopy (03/17/04) hscope d&c/dx lscope--menometrorrhagia/pelvic pain History of left salpingo-oophorectomy (11/16/06) lscope LSO--lt adnexal mass History of liver biopsy (~2008) primary biliary cirrhosis History of orthopedic surgery 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 Smoking status: Former smoker Alcohol intake: never Substance use: never Substance use type: does not use Living arrangements: other Additional living arrangements comments: Occupation/Education: retired Gender identity (if verbalized by the patient): Female Sexual Orientation (if Verbalized by the Patient): Straight or Heterosexual Spiritual care concerns: No Meds Home Medications and Allergies Home Medications Medication Instructions Recorded Confirmed Type ursodiol 300 mg capsule 600 mg PO BID 03/08/22 03/08/22 History Allergies Allergy/AdvReac Type Severity Reaction Status Date / Time adhesive Allergy Unknown Blister Verified 01/05/23 11:17 Iodinated Contrast Media Allergy Unknown Anxiety Verified 01/05/23 11:17 ioversol Allergy Unknown Unknown Verified 01/05/23 11:17 Vital Signs Vital Signs - 24 hr 01/05/23 10:30 01/05/23 11:17 01/05/23 11:11 Temperature 36.4 C L Pulse Rate 93 82 95 Respiratory Rate 17 14 Blood Pressure 192/73 H Pulse Oximetry 98 100 Oxygen Delivery Room Air 01/05/23 11:31 01/05/23 11:42 01/05/23 11:45 Temperature Pulse Rate 83 82 83 Respiratory Rate 16 13 14 Blood Pressure 175/86 H Pulse Oximetry 97 100 100 Oxygen Delivery 01/05/23 11:46 01/05/23 11:47 01/05/23 12:01 Temperature Pulse Rate 81 78 95 Respiratory Rate 15 17 Blood Pressure 159/73 H 159/71 H Pulse Oximetry 99 100 Oxygen Delivery 01/05/23 12:09 01/05/23 12:14 01/05/23 12:15 Temperature Pulse Rate 85 87
[2023-01-05 14:44] LABS: Troponin I < 0.012 ng/mL (0.000-0.034)
[2023-01-05] MEDS: hydrALAZINE HCL 20 MG/ML VIAL 10 MG IV PUSH ×2 (14:47→21:56)
--- NOTE | 2023-01-05 14:49 | PC.NURSE ---
Ultrasound at bedside.
--- NOTE | 2023-01-05 15:52 | ADMGEN ---
This patient, Jeanne Lund, was admitted to Medical Room 344-01. Patient/family oriented to hospital policies and general routines including ID bracelet, bed and alarms, visiting hours, pain management, procedures, bathroom and other care routines, personal items, smoking policy, room service/diet, and visiting hours. Information on how to activate the Rapid Response Team has been discussed. Patient/Family are encouraged to report perceived risks to care and to ask questions if they do not understand what they are told or what they should do.
[2023-01-05] MEDS: LORazepam INJ (*CRX) 2 MG/ML VIAL 0.5 MG IV PUSH ×2 (16:53→22:56)
[2023-01-05 16:54] LABS: Troponin I < 0.012 ng/mL (0.000-0.034)
[2023-01-05] MEDS: IBUPROFEN 200 MG TABLET PO (21:56)
[2023-01-06] VITALS: PULSE 81
[2023-01-06 04:00] VITALS: PULSE 75
[2023-01-06 05:42] LABS: Eosinophils Absolute Auto 0.1 K/mm3 (0-0.3); Eosinophils Percent Auto 2.2 % (0-4.4); Hematocrit 40.3 % (37.0-47.0); Hemoglobin 13.5 g/dL (12.0-15.0); Immature Granulocyte Absolute 0.01 K/mm3 (0.00-0.031); Immature Granulocyte Percent A 0.2 % (0-0.5); Lymphocytes Absolute Auto 1.68 K/mm3 (0.9-3.2); Lymphocytes Percent Auto 40.5 % (18.3-44.2); Mean Corpuscular HGB Conc 33.5 g/dl (32-36); Mean Corpuscular Hemoglobin 30.6 pg (26-34); Mean Corpuscular Volume 91.4 fl (80-100); Mean Platelet Volume 9.4 fl (7.4-10.4); Monocytes Absolute Auto 0.5 K/mm3 (0.1-0.6); Neutrophils Absolute Auto 1.8 K/mm3 (1.3-6.7); Neutrophils Percent Auto 44.1 % (45.5-73.1); Platelet Count Result 203 k/mm3 (150-375); Red Blood Count 4.41 M/mm3 (4.2-5.4); Red Cell Distribution Width 11.9 % (11.5-14.5); White Blood Count 4.2 K/mm3 (4.5-10.0)
[2023-01-06 05:45] LABS: Alanine Aminotransferase 31 U/L (6-35); Albumin Level 4.1 g/dL (3.5-5.1); Alkaline Phosphatase 101 U/L (38-126); Anion Gap 3 mmol/L (8-16); Aspartate Amino Transferase 38 U/L (14-36); Blood Urea Nitrogen 19 mg/dL (7-17); Carbon Dioxide 30 mmol/L (22-30); Chloride 104 mmol/L (98-107); Estimated CRCL calculation 77 ml/min; Estimated Glomerular Filt Rate > 60; Glucose 91 mg/dL (65-110); Lactic Acid Reflex 0.6 mmol/L (0.7-2.0); Magnesium 2.1 mg/dL (1.6-2.3); Potassium 3.7 mmol/L (3.4-5.0); Sodium 137 mmol/L (137-145)
[2023-01-06 06:00] VITALS: BP 133/60; PULSE 76; RESP 16; TEMP 36.9; O2SAT 98
[2023-01-06 08:00] VITALS: PULSE 97
[2023-01-06] MEDS: IBUPROFEN 200 MG TABLET PO (08:19)
[2023-01-06 09:26] VITALS: BP 167/70; PULSE 91; TEMP 36.7; O2SAT 95
[2023-01-06] MEDS: ASPIRIN 325 MG ENTERIC TABLET PO (09:34)
[2023-01-06] MEDS: ursodioL 300 MG CAPSULE 600 MG PO (09:34)
[2023-01-06] MEDS: lisinopriL 5 MG TABLET PO (09:34)
--- NOTE | 2023-01-06 11:17 | PM.DS ---
DS: Admitting Diagnosis Discharge Date 01/06/2023 Admitting Diagnosis hypertensive urgency DS: Discharge Diagnosis Discharge Diagnosis (1) Hypertensive urgency: Code(s): I16.0 - Hypertensive urgency Status: Acute Assessment and Plan: patient presented with dizziness. Found to b hypertensive at 192/73. BP improved following initial dose of IV hydralazine. Patient was transition to lisinopril 5 mg daily with improvement in blood pressure at appropriate rate. She will continue lisinopril as an outpatient. Instructed to monitor blood pressures at home and follow-up with PCP for review in 1 week (2) Palpitations: Code(s): R00.2 - Palpitations Status: Acute Assessment and Plan: patient with onset of palpitations 1 day prior to presentation, however reported intermittent palpitations for several years. Monitored on telemetry and maintained normal sinus rhythm. EKG unremarkable, patient in sinus rhythm with heart rate of 93. Echocardiogram completed with normal EF, grade 1 diastolic dysfunction, no significant valvular disease. TSH within normal limits. symptoms may be related to anxiety. Patient will obtain 30 day event monitor following discharge and follow-up with PCP for review (3) Cerebral infarction, chronic: Code(s): Z86.73 - Personal history of transient ischemic attack (TIA), and cerebral infarction without residual deficits Status: Acute Assessment and Plan: head CT completed on presentation given hypertensive urgency showed no acute findings but did have evidence of chronic right frontal lobe infarct. Brain MRI was negative for any acute findings. Patient had no neurologic deficits. Carotid Dopplers were normal. Echocardiogram unremarkable as above. Patient was evaluated by Neurology During admission. Per Neurology, no indication for aspirin or other anti-platelet therapy. Discussed obtaining lipid panel for risk stratification and monitoring, however patient would prefer to follow-up with her PCP to complete this. (4) Primary biliary cirrhosis: Code(s): K74.3 - Primary biliary cirrhosis Status: Chronic Assessment and Plan: Unchanged, no acute issues. Continue ursodiol with meals DS: Summary Hospital Course Hospital Course: date of admission: 01/05/2023 date of discharge: 01/06/2023 Jeanne Lund is a 67-year-old male with a history of primary biliary cirrhosis, hypertension, and kidney stones who presented to the emergency department on 01/05/23 with complaints of dizziness and palpitations. On presentation to the ED, her BP was elevated at 190 2/73, additional vital signs were stable, CBC and BMP unremarkable, troponin negative, TSH within normal limits, CXR with no acute findings and head CT with no acute findings but evidence of chronic right frontal lobe infarct. Please see above for further details. Blood pressure improved at appropriate rate with initiation of antihypertensive therapy. Patient was evaluated by Neurology given history of chronic infarct. No acute findings and no need for further evaluation or treatment. she will continue with a 30 day event monitor given history of intermittent palpitations. Patient was feeling back to her usual state of health. She was agreeable with plans for discharge home and follow-up with PCP. She was eager to return home in order to care for her CT who has been left alone. She felt comfortable with plan. Discussed worrisome signs and symptoms for which to return and she was educated on her medications. She will follow-up with her PCP in 1 week for further monitoring. She has been instructed to monitor blood pressures at home and record. Time Spent with Patient Time attestation: Total time spent providing and/or coordinating discharge services: 45 minutes Time spent: Greater than 30 minutes Exam Narrative: General: well-nourished, well-appearing 67-year-old
--- NOTE | 2023-01-06 11:45 | WPDNEURCNPN ---
Assessment and Plan Assessment and plan (1) Cerebral infarction, chronic: Code(s): Z86.73 - Personal history of transient ischemic attack (TIA), and cerebral infarction without residual deficits Status: Acute (2) Dizziness: Code(s): R42 - Dizziness and giddiness Status: Acute Plan 1 dizziness with negative ultrasound of the carotid, negative MRI of the brain and normal routine lab, does have chronic right frontal lobe infarct will continue the aspirin 81 mg daily as echocardiogram is not indicated above right to left shunt though there is moderate aortic valve sclerosis and trace tricuspid valve regurgitation and will be discharged accordingly Consult date: 01/06/23 HPI: Jeanne Lund is a 67 year old female [facility] Past Medical History Medical History (Updated 01/06/23 @ 11:21 by Jeanie Urbina PA-C) Biliary liver cirrhosis Dizziness Encounter for Papanicolaou smear for cervical cancer screening HTN (hypertension) with goal to be determined Kidney stone on right side Palpitation Screening mammogram, encounter for Surgical History Surgical History (Updated 01/05/23 @ 17:06 by Esperanza Quintana NP) H/O knee surgery 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 History of dilation and curettage 03/17/04 hscope d&c/dx lscope--menometrorrhagia/pelvic pain 06/08/06 hscope d&c--postmenopausal bleeding, endometrial hypertrophy History of endometrial ablation History of laparoscopy (03/17/04) hscope d&c/dx lscope--menometrorrhagia/pelvic pain History of left salpingo-oophorectomy (11/16/06) lscope LSO--lt adnexal mass History of liver biopsy (~2008) primary biliary cirrhosis History of orthopedic surgery benign bone tumor rt & lt legs History of tubal ligation (~11/1983) Hx laparoscopic cholecystectomy Family History Family History Father Hypertension Family history of diabetes mellitus in first degree relative Family history of throat cancer Patient's father is , Onset Age: 7 Mother Hypertension Family history of malignant neoplasm of cervix Family history of renal failure Family history of kidney disease Sibling Family history of malignant neoplasm of breast in first degree relative sister Social History Social History (Updated 01/05/23 @ 17:08 by Esperanza Quintana NP) Social History: She is but her is currently out of town. She only has 1 son. 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 She is a former smoker Code status full code Smoking status: Former smoker Alcohol intake: never Substance use: never Substance use type: does not use Lack of Transportation: No Lack of Food: Never True Current Housing: Decline to Answer Concerned About Future Housing: Decline to Answer Difficulty Paying Gas/Electric Bills: Decline to Answer Difficulty Paying for Meds: Decline to Answer Currently Unemployed: Decline to Answer Education: Decline to Answer Difficulty w/ Childcare or Family Care: Decline to Answer Living arrangements: other Additional living arrangements comments: Occupation/Education: retired Gender identity (if verbalized by the patient): Female Sexual Orientation (if Verbalized by the Patient): Straight or Heterosexual Spiritual care concerns: No Meds Home Medications and Allergies Home Medications Medication Instructions Recorded Confirmed Type ursodiol 300 mg capsule 600 mg PO BID 03/08/22 01/05/23 History Allergies Allergy/AdvReac Type Severity Reaction Status Date / Time adhesive Allergy Unknown Blister Verified 01/05/23 11:17 Iodinated Contrast Media Allergy Unknown Anxiety Verified 01/05/23 11:17 ioversol Allergy Unknown Unknown Verified 01/05/23 11:17 Vital Signs Vital Signs - 24 hr 01/05/23 11:46 01/05/23 11:47 01/05/23 12:01 Temperature
[2023-01-06 12:00] VITALS: PULSE 82
== END 2023-01-06 13:00 | disposition home or self-care (01) ==
LOC: ANHED 10:42 → ANH3MED 15:31
PROVIDERS: Emergency Medicine; Nurse Practitioner; Admitting Provider Student in an Organized Health Care Education/Training Program; Emergency Provider Physician Assistant; PCP Internal Medicine; Visit Provider Physician Assistant
DX: I16.0 Hypertensive urgency (principal); R00.2 Palpitations; K74.3 Primary biliary cirrhosis; R42 Dizziness and giddiness; R07.9 Chest pain, unspecified; I35.8 Other nonrheumatic aortic valve disorders; R06.02 Shortness of breath; Z20.822 Contact with and (suspected) exposure to COVID-19; I11.9 Hypertensive heart disease without heart failure; Z87.891 Personal history of nicotine dependence; Z86.73 Personal history of transient ischemic attack (TIA), and cerebral infarction without residual deficits; Z87.442 Personal history of urinary calculi; Z79.899 Other long term (current) drug therapy; Z82.49 Family history of ischemic heart disease and other diseases of the circulatory system; Z84.1 Family history of disorders of kidney and ureter
CPT/HCPCS: 36415; 70450; 70551; 71046; 80053; 83605; 83690; 83735; 84443; 84484; 85025; 85610; 85730; 87637; 93005; 93306; 93880; 96374; 96375; 96376; 99285; A9270; G0378; J0360; J2060

== ENCOUNTER 2023-05-09 11:17 | Emergency (ER) | payer MEDICARE, SELFPAY ==
--- NOTE | ~2023-05-09 | CT_ITS ---
Noncontrast CT scan of the lumbar spine CLINICAL HISTORY: Back pain TECHNIQUE: Axial noncontrast imaging of the lumbar spine was performed. Sagittal and coronal reformat aura images were constructed. Dose reduction technique was used on this scan by utilizing automated ex posure control and iterative reconstruction technique. The dose-length product (DLP) was 1232.53 mGy- cm. FINDINGS: There is 18 degrees levoscoliosis of the lumbar spine. There is 3 mm anterolisthesis of L4 over L5. Intervertebral disc spaces are relatively well-preserved. At L1-L2, there is no significant disc bulge or herniation. No central canal stenosis or neural dexter inal narrowing identified. At L2-L3, there is minimal disc bulge and minimal facet arthropathy. No central canal stenosis or def inite neural foraminal narrowing. At L3-L4, there is minimal disc bulge and moderate facet arthropathy. No central canal stenosis or de finite neural foraminal narrowing. At L4-L5, disc bulge and facet arthropathy are present. Possible minimal central canal stenosis. Ther e is minimal bilateral neural foraminal narrowing. At L5-S1, there is mild disc bulge. There is mild facet arthropathy. No central canal stenosis or santana ral foraminal narrowing. Paravertebral soft tissues are unremarkable. There is prominent stool at the rectum with mild stercor al proctitis. Impression: 18 degrees levoscoliosis with 3 mm anterolisthesis of L4 over L5. Mild degenerative spondylosis as above. Fecal impaction and stercoral proctitis. Reviewed, dictated and finalized at [facility]. Impression: 18 degrees levoscoliosis with 3 mm anterolisthesis of L4 over L5. Mild degenerative spondylosis as above. Fecal impaction and stercoral proctitis.
[2023-05-09 11:25] VITALS: BP 184/79; PULSE 92; RESP 16; TEMP 36.4; O2SAT 97
[2023-05-09 11:42] LABS: Appearance Urine Clear (Clear); Bilirubin Urine Negative (Negative); Blood Urine Negative (Negative); Color Urine Yellow (Yellow); Glucose Urine UA Negative (Negative); Ketones Urine 2+ mg/dL (Negative); Leukocyte Esterase Ur Negative LEU/UL (Negative); Nitrate Urine Negative (Negative); Protein Urine Negative (Negative); Specific Grav Ur 1.007 (1.001-1.035); Urobilinogen Urine 0.2 mg/dL (<2.0); pH Urine 5.5 (5.0-9.0)
--- NOTE | 2023-05-09 11:43 | PC.NURSE ---
agree with triage notes. states she took 200mg of ibuprofen this morning. denies any problems with urination/bowels.
[2023-05-09 11:54] LABS: Add Urine Microscopic? NO
[2023-05-09] MEDS: NAPROXEN 500 MG TABLET PO (12:36)
[2023-05-09] MEDS: diazePAM (*CRX) 5 MG TABLET PO (12:36)
--- NOTE | 2023-05-09 13:47 | ED.GENADULT ---
HPI - General Adult General Chief complaint: Back Pain/Injury Stated complaint: back pain Time Seen by Provider: 05/09/23 11:51 History of Present Illness HPI narrative: Jeanne Lund is a 67 y/o female who presents with reports of doing a lot of house work, cleaning, moving furniture the past two weeks. She reports she was bent over vacuuming the base boards all day yesterday and today she is having left lower back pain. She denies any trauma/ fall. Denies loss of bowel or bladder, denies numbness/tingling. She reports standing improves her pain as long as she does not twist or turn, sitting and twisting at the waist makes her pain worse. She also reports of having some constipation and has been taking OTC medications to help her bowels move Related Data Home Medications Medication Instructions Recorded Confirmed ursodiol 300 mg capsule 600 mg PO BID 03/08/22 02/10/23 Allergies Allergy/AdvReac Type Severity Reaction Status Date / Time adhesive Allergy Unknown Blister Verified 02/10/23 12:52 Iodinated Contrast Media Allergy Unknown Anxiety Verified 02/10/23 12:52 ioversol Allergy Unknown Unknown Verified 02/10/23 12:52 Review of Systems Review of Systems: CONSTITUTIONAL: Denies fever, chills, or sweats. EYES: Denies visual changes, redness, or discharge. ENT: Denies rhinorrhea, congestion, sore throat, or otalgia. CARDIOVASCULAR: Denies chest pain, palpitations, or edema. RESPIRATORY: Denies cough or dyspnea. GASTROINTESTINAL: Denies abdominal pain, nausea, vomiting, or diarrhea. GENITOURINARY: Denies dysuria or hematuria. SKIN: Denies rash or itching. MUSCULOSKELETAL: Reports left lower back pain that has progressively worsened over the past two days. NEUROLOGIC: Denies headache, numbness, dizziness, or weakness. PSYCHIATRIC: Denies anxiety or depression. 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 She only has 1 son. 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 She is a former smoker Code status full code Smoking status: Former smoker Alcohol intake: never Substance use: never Substance use type: does not use Lack of Transportation: No Lack of Food: Never True Current Housing: I Have Housing Concerned About Future Housing:
== END 2023-05-09 14:36 | disposition home or self-care (01) ==
PROVIDERS: Emergency Provider Nurse Practitioner Family; PCP Family Medicine
DX: M47.816 Spondylosis without myelopathy or radiculopathy, lumbar region (principal); K59.00 Constipation, unspecified; S39.012A Strain of muscle, fascia and tendon of lower back, initial encounter; I10 Essential (primary) hypertension; Z86.73 Personal history of transient ischemic attack (TIA), and cerebral infarction without residual deficits; Z87.891 Personal history of nicotine dependence; X50.9XXA Other and unspecified overexertion or strenuous movements or postures, initial encounter; Y92.009 Unspecified place in unspecified non-institutional (private) residence as the place of occurrence of the external cause
CPT/HCPCS: 72131; 81003; 99284; A9270

== ENCOUNTER 2023-05-30 07:48 | Outpatient (CLI) | payer MEDICARE, SELFPAY ==
[2023-05-30 08:27] LABS: Hematocrit 42.1 % (37.0-47.0); Hemoglobin 13.9 g/dL (12.0-15.0); Mean Corpuscular Hemoglobin 30.2 pg (26-34); Mean Corpuscular Volume 91.5 fl (80-100); Mean Platelet Volume 9.4 fl (7.4-10.4); Platelet Count Result 217 k/mm3 (150-375); Red Cell Distribution Width 11.7 % (11.5-14.5); White Blood Count 4.2 K/mm3 (4.5-10.0)
[2023-05-30 08:38] LABS: Alanine Aminotransferase 30 U/L (6-35); Albumin Level 4.3 g/dL (3.5-5.1); Alkaline Phosphatase 101 U/L (38-126); Anion Gap 5 mmol/L (8-16); Aspartate Amino Transferase 35 U/L (14-36); Bilirubin,Total 0.6 mg/dL (0.2-1.3); Blood Urea Nitrogen 19 mg/dL (7-17); Calcium 9.4 mg/dL (8.4-10.2); Carbon Dioxide 35 mmol/L (22-30); Chloride 102 mmol/L (98-107); Cholesterol 191 mg/dL (0-200); Estimated Glomerular Filt Rate > 60; Glucose 97 mg/dL (65-110); HDL Direct 61 mg/dL; Potassium 4.6 mmol/L (3.4-5.0); Sodium 142 mmol/L (137-145); Triglycerides 85 mg/dL (<150)
[2023-05-30 08:49] LABS: LDL Cholesterol Direct 98 mg/dL
== END 2023-05-30 07:49 | disposition home or self-care (01) ==
LOC: ANHLAB 07:51
PROVIDERS: PCP Nurse Practitioner; Visit Provider Nurse Practitioner Family
DX: K74.3 Primary biliary cirrhosis (principal); I10 Essential (primary) hypertension
CPT/HCPCS: 36415; 80053; 80061; 84443; 85027

== ENCOUNTER 2023-06-29 06:58 | Emergency (ER) | payer MEDICARE, SELFPAY ==
[2023-06-29] VITALS (14 sets, daily range): BP systolic 142–177; BP diastolic 68–91; PULSE 65–86; RESP 12–20; TEMP 36.1; O2SAT 97–100
--- NOTE | 2023-06-29 07:13 | ECG_ITS ---
Measurements Intervals [place] Rate: 78 P: 67 NV: 141 QRS: 53 QRSD: 89 T: 26 QT: 365 QTc: 416 Interpretive Statements SINUS RHYTHM LEFT ATRIAL ENLARGEMENT [-0.15mV P WAVE IN V1/V2] BORDERLINE ECG COMPARED TO ECG 01/05/2023 10:26:09 NO SIGNIFICANT CHANGES Electronically Signed On 06-30-2023 7:33:47 CDT by Mk Hammonds M.D.
[2023-06-29 07:54] LABS: Basophils Percent Auto 0.7 % (0.2-1.2); Hemoglobin 14.3 g/dL (12.0-15.0); Lymphocytes Absolute Auto 1.22 K/mm3 (0.9-3.2); Lymphocytes Percent Auto 29.1 % (18.3-44.2); Mean Corpuscular HGB Conc 33.3 g/dl (32-36); Mean Corpuscular Hemoglobin 30.4 pg (26-34); Mean Corpuscular Volume 91.3 fl (80-100); Mean Platelet Volume 9.4 fl (7.4-10.4); Monocytes Absolute Auto 0.3 K/mm3 (0.1-0.6); Monocytes Percent Auto 8.1 % (2.6-8.5); Neutrophils Absolute Auto 2.6 K/mm3 (1.3-6.7); Neutrophils Percent Auto 61.1 % (45.5-73.1); Platelet Count Result 233 k/mm3 (150-375); Red Blood Count 4.71 M/mm3 (4.2-5.4); Red Cell Distribution Width 11.6 % (11.5-14.5); White Blood Count 4.2 K/mm3 (4.5-10.0)
[2023-06-29 08:01] LABS: Alanine Aminotransferase 27 U/L (6-35); Albumin Level 4.2 g/dL (3.5-5.1); Alkaline Phosphatase 100 U/L (38-126); Anion Gap 2 mmol/L (8-16); Aspartate Amino Transferase 35 U/L (14-36); Bilirubin,Total 0.8 mg/dL (0.2-1.3); Blood Urea Nitrogen 22 mg/dL (7-17); Calcium 9.6 mg/dL (8.4-10.2); Carbon Dioxide 32 mmol/L (22-30); Chloride 102 mmol/L (98-107); Estimated CRCL calculation 77 ml/min; Estimated Glomerular Filt Rate > 60; Glucose 116 mg/dL (65-110); Potassium 3.7 mmol/L (3.4-5.0); Sodium 136 mmol/L (137-145)
[2023-06-29] MEDS: SODIUM CHLORIDE 0.9% IV 1,000 ML 999 ML IV CONT (08:36)
[2023-06-29] MEDS: MECLIZINE HCL 25 MG TABLET PO (09:38)
--- NOTE | 2023-06-29 09:49 | ED.GENADULT ---
HPI - General Adult General Chief complaint: Recheck/Abnormal Lab/Rx Stated complaint: elevated BP Time Seen by Provider: 06/29/23 07:25 Source: patient and RN notes reviewed Mode of arrival: ambulatory Limitations: no limitations History of Present Illness HPI narrative: This is a 67 year old female with history of hypertension and primary biliary cirrhosis who presents for evaluation of elevated blood pressure. Patient states the she felt dizzy this morning when she got up. She reports dizziness with standing and walking. She denies spinning, headache, nausea, vomiting, blurred vision, focal weakness. She checked her blood pressure and it was 134/71 and then it went up to 150s. She reports he was admitted in December for hypertension so she came to ER. She denies chest pain, or shortness of breath. Related Data Home Medications Medication Instructions Recorded Confirmed ursodiol 300 mg capsule 600 mg PO BID 03/08/22 05/11/23 Allergies Allergy/AdvReac Type Severity Reaction Status Date / Time adhesive Allergy Unknown Blister Verified 06/29/23 06:58 Iodinated Contrast Media Allergy Unknown Anxiety Verified 06/29/23 06:58 ioversol Allergy Unknown Unknown Verified 06/29/23 06:58 Review of Systems Constitutional: Constitutional: Denies weakness ENT: Denies vertigo and Denies nasal congestion Cardiovascular: Cardiovascular: Denies syncope, Denies rapid heart rate, Denies irregular heart rhythm, Denies leg edema and Denies dyspnea Respiratory: Respiratory: Denies chest congestion, Denies hemoptysis, Denies excessive phlegm production and Denies dyspnea Gastrointestinal: Gastrointestinal: Denies abdominal pain, Denies hematochezia, Denies diarrhea and Denies vomiting Genitourinary: Genitourinary: Denies hematuria and Denies dysuria Musculoskeletal: Musculoskeletal: Denies joint swelling, Denies loss of height and Denies muscle weakness Neurologic: Reports dizziness, Denies syncope, Denies headache(s), Denies focal weakness and Denies weakness PMFSH Past Medical History Medical History Biliary liver cirrhosis Dizziness Encounter for Papanicolaou smear for cervical cancer screening H/O: CVA (cerebrovascular accident) HTN (hypertension) with goal to be determined Kidney stone on right side Palpitation Screening mammogram, encounter for Surgical History Surgical History H/O knee surgery 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 She only has 1 son. 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 She is a former smoker Code status full code Smoking status: Former smoker Alcohol
== END 2023-06-29 10:10 | disposition home or self-care (01) ==
PROVIDERS: Emergency Provider General Practice; PCP Nurse Practitioner
DX: I10 Essential (primary) hypertension (principal); R42 Dizziness and giddiness; Z87.891 Personal history of nicotine dependence
CPT/HCPCS: 36415; 80053; 85025; 93005; 96360; 99283; A9270; J7030

== ENCOUNTER 2023-06-30 10:34 | Outpatient (CLI) | payer MEDICARE, SELFPAY ==
--- NOTE | ~2023-06-30 | XR_ITS ---
EXAMINATION: XR hip LT min 2V DATE: 06/30/2023 10:54 INDICATION: Left hip pain. TECHNIQUE: 2 views of left hip were obtained. COMPARISON: None. FINDINGS: Bone alignment is normal. No fracture. There is mild left hip osteoarthritis. IMPRESSION: 1. Mild left hip osteoarthritis. Reviewed, dictated and finalized at location A.
== END 2023-06-30 10:35 | disposition home or self-care (01) ==
LOC: ANHIMG 10:37
PROVIDERS: PCP Nurse Practitioner; Visit Provider Nurse Practitioner
DX: M16.12 Unilateral primary osteoarthritis, left hip (principal)
CPT/HCPCS: 73502

== ENCOUNTER 2023-08-28 05:48 | Day surgery (SDC) | payer MEDICARE, SELFPAY ==
[2023-08-10 11:19] VITALS: BMI 21.7
--- NOTE | 2023-08-25 13:22 | PM.HPGS ---
History of Present Illness History of Present Illness Consent: Risks, benefits, and alternatives have been discussed and questions answered. Patient agrees to proceed with procedure. Chief complaint: other specified diseases of anus & rectum, melena Narrative: Jeanne Lund is a 67 year old female Previously seen blood her stools. She had had problems with constipation in fact had also recently had a fecal impaction. 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 She only has 1 son. 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 She is a former smoker Code status full code Smoking status: Former smoker Tobacco type: cigarettes Alcohol intake: never Substance use: never Substance use type: does not use Lack of Transportation: No Lack of Food: Never True Current Housing: I Have Housing Concerned About Future Housing: No Difficulty Paying Gas/Electric Bills: No Difficulty Paying for Meds: No Education: High School Diploma/GED Difficulty w/ Childcare or Family Care: No Living arrangements: with family Additional living arrangements comments: Occupation/Education: retired Gender identity (if verbalized by the patient): Female Sexual Orientation (if Verbalized by the Patient): Straight or Heterosexual Spiritual care concerns: No Meds Home Medications and Allergies Home Medications Medication Instructions Recorded Confirmed Type ursodiol 300 mg capsule 600 mg PO .COMPLEX 06/30/23 08/28/23 History lisinopril 10 mg tablet 10 mg PO QAM #90 tabs 08/22/23 08/28/23 Rx Allergies Allergy/AdvReac Type Severity Reaction Status Date / Time adhesive Allergy Unknown Blister Verified 08/28/23 06:10 Iodinated Contrast Media Allergy Unknown Anxiety Verified 08/28/23 06:10 Exam Const: General: alert Orientation/consciousness: patient oriented x3 Resp: Auscultation: clear to auscultation bilaterally Cardio: Rhythm: regular rhythm GI: GI Palp: Yes Soft to palpation and No Tenderness to palpation present (GI) Neuro: General: patient oriented x3 Assessment and Pl
[2023-08-28 06:15] VITALS: BP 139/69; PULSE 77; RESP 16; TEMP 36.9; O2SAT 98
[2023-08-28] MEDS: LACTATED RINGERS 1,000 ML 150 ML IV CONT (06:15)
--- NOTE | 2023-08-28 07:20 | WPDANESEPPF ---
Anes - Initial Pre Proc Eval Procedure: Operation Date: 08/28/23 07:30 Proposed Procedures p Colonoscopy - Darell Kinsey MD Date/Time: 08/28/23 07:20 Surgeon: Darell Kinsey MD Pre Op Diagnosis: other specified diseases of anus & rectum, melena Patient Data Age: 67 Gender: F Height: 1.73 m Weight: 68.4 kg Allergies Allergy/AdvReac Type Severity Reaction Status Date / Time adhesive Allergy Unknown Blister Verified 08/28/23 06:10 Iodinated Contrast Media Allergy Unknown Anxiety Verified 08/28/23 06:10 Home Medications Medication Instructions Recorded Confirmed Type ursodiol 300 mg capsule 600 mg PO .COMPLEX 06/30/23 08/28/23 History lisinopril 10 mg tablet 10 mg PO QAM #90 tabs 08/22/23 08/28/23 Rx Patient hx anesthesia problems: none Family hx anesthesia problems: none Results Review: All pre-operative results and documents have been reviewed as part of the pre-operative evaluation. 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 She only has 1 son. 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 She is a former smoker Code status full code Smoking status: Former smoker Tobacco type: cigarettes Alcohol intake: never Substance use: never Substance use type: does not use Lack of Transportation: No Lack of Food: Never True Current Housing: I Have Housing Concerned About Future Housing: No Difficulty Paying Gas/Electric Bills: No Difficulty Paying for Meds: No Education: High School Diploma/GED Difficulty w/ Childcare or Family Care: No Living arrangements: with family Additional living arrangements comments: Occupation/Education: retired Gender identity (if verbalized by the patient): Female Sexual Orientation (if Verbalized by the Patient): Straight or Heterosexual Spiritual care concerns: No Anes - Eval Final PreProcedure Day of Procedure 08/28/23 07:20 Patient weight: normal Heart: regular rate and rhythm Lungs: clear to auscultation Airway: Mallampati scale class II Neurological: alert and oriented Last oral intake: >/= 8 hours ASA classification: III Emergent: no Anesthetic plan: proceed Anesthesia type and monitoring:
[2023-08-28 07:40] VITALS: BP 114/54; PULSE 65; RESP 14; O2SAT 96
[2023-08-28 07:50] VITALS: BP 111/58; PULSE 64; RESP 18; O2SAT 96
--- NOTE | 2023-08-28 07:58 | WPDANESPN ---
Anes - Prog Note Post-Op Date/Time: 08/28/23 07:58 Cardiovascular status: normal Respiratory status: normal Airway patency: baseline Mental status: baseline Post-Op hydration status: normal Vital Signs: Last Vital Signs Temp 36.9 C 08/28/23 06:15 Pulse 64 08/28/23 07:50 Resp 18 08/28/23 07:50 BP 111/58 L 08/28/23 07:50 Pulse Ox 96 08/28/23 07:50 O2 Del Method Room Air 08/28/23 07:50 Pain Score (VAS): 0 I/O: Intake & Output 08/27/23 08/27/23 08/28/23 15:59 23:59 07:59 Intake Total 800 Balance 800 Patient Feedback: Patient satisfied with anesthetic care.
[2023-08-28 08:00] VITALS: BP 129/75; PULSE 63; RESP 18; O2SAT 100
== END 2023-08-28 08:12 | disposition home or self-care (01) ==
PROVIDERS: PCP Family Medicine; Visit Provider Internal Medicine Gastroenterology
PROC: 0DJD8ZZ Inspection of Lower Intestinal Tract, Via Natural or Artificial Opening Endoscopic (ICD-10-PCS; CPT 45378; principal; 2023-08-28 07:30)
DX: R93.3 Abnormal findings on diagnostic imaging of other parts of digestive tract (principal); K64.8 Other hemorrhoids
CPT/HCPCS: 45378

== ENCOUNTER → 2023-12-19 11:24 | Outpatient (CLI) | payer MEDICARE, SELFPAY ==
--- NOTE | ~2023-12-19 | XR_ITS ---
EXAMINATION: XR lumbar spine 2-3V DATE: 12/19/2023 11:52 INDICATION: Low back pain TECHNIQUE: Anteroposterior and lateral views of the lumbar spine, and cone-down lateral view of the l umbosacral junction were obtained. COMPARISON: CT, 05/09/2023 FINDINGS: There are 3 mm of unchanged anterolisthesis of L4 on L5. The vertebral body heights are lucía ntained. There is no fracture. There is mild to moderate facet joint osteoarthritis of the lumbar spi ne. A large volume of colonic stool is present. Cholecystectomy clips are noted. IMPRESSION: 1. Mild lumbar spondylosis without acute findings or significant interval change. 2. Constipation. Reviewed, dictated and finalized at location L. BUILDER [employer] IMPRESSION: 1. Mild lumbar spondylosis without acute findings or significant interval badillo e. 2. Constipation.
--- NOTE | ~2023-12-19 | XR_ITS ---
EXAMINATION: XR finger 1st RT min 2V INDICATION: Right first finger pain TECHNIQUE: Three views of the right first finger are obtained. COMPARISON: None available FINDINGS: Bone alignment is normal. There is no fracture. There is moderate osteoarthritis of the fir st carpometacarpal joint. There is mild osteoarthritis at the metacarpophalangeal and interphalangeal joints. The soft tissues are unremarkable. IMPRESSION: 1. Osteoarthritis, worst at the first carpometacarpal joint. No acute osseous abnormality. Reviewed, dictated and finalized at location L. CTOR OF ORTHOPEDICS IMPRESSION: 1. Osteoarthritis, worst at the first carpometacarpal joint. No acute osseous a bnormality.
== END ==
PROVIDERS: PCP Nurse Practitioner; Visit Provider Nurse Practitioner
DX: M79.646 Pain in unspecified finger(s) (principal); M79.605 Pain in left leg; G89.29 Other chronic pain; M19.041 Primary osteoarthritis, right hand; M47.896 Other spondylosis, lumbar region; K59.00 Constipation, unspecified
CPT/HCPCS: 72100; 73140

== ENCOUNTER 2024-06-04 14:12 | Outpatient (CLI) | payer MEDICARE, SELFPAY ==
--- NOTE | ~2024-06-04 | MM_ITS ---
EXAMINATION: MM screening tonie BI w martin HISTORY: Screening TECHNIQUE: Craniocaudal and mediolateral oblique 3-D tomosynthesis images were obtained and synthetic 2-D images were generated. CAD analysis was submitted and interpreted. COMPARISON: No prior studies for comparison. BREAST PARENCHYMAL COMPOSITION: Dense: The breasts are heterogeneously dense, which may obscure small masses FINDINGS: There is no evidence of suspicious mass, calcification, or architectural distortion to sugg est malignancy in either breast. There has been no suspicious interval change. IMPRESSION: 1. No mammographic evidence of malignancy. 2. Recommend routine screening mammography in one year. BI-RADS Category 1: Negative Reviewed, dictated and finalized at location B.
== END 2024-06-04 14:13 ==
LOC: MICIMG 14:13
PROVIDERS: PCP Obstetrics & Gynecology; Visit Provider Obstetrics & Gynecology
DX: Z12.31 Encounter for screening mammogram for malignant neoplasm of breast (principal)
CPT/HCPCS: 77063; 77067

== ENCOUNTER 2025-01-08 08:56 | Outpatient (CLI) | payer MEDICARE, SELFPAY ==
--- NOTE | ~2025-01-08 | XR_ITS ---
HISTORY: M25.552 - Pain in left hip X 1 MONTH, NKI HX OSTEOARTHRITIS COMPARISON: 06/30/2023 TECHNIQUE: 2 views of the left hip FINDINGS: No acute fracture or dislocation is identified. Superior lateral sclerosis of the left femoral acetabular joint space is present consistent with oste oarthritis. Joint space narrowing detected within the left SI joint with sclerosis. Degenerative disease within the pubic symphysis is also noted. Age-appropriate mineralization. IMPRESSION: Degenerative disease without acute fracture or dislocation Reviewed, dictated and finalized at location A. ATORY HUNTER
--- OUTSIDE RECORDS SUMMARY | 2025-01-08 09:34 | XMS_ITS | Referral Summary ---
Author Organization [facility] [employer] Address [address] [place] [address] Care Team Providers Care Cooling Room Attendant Name Role Phone Harpreet Wild APRN-RELOCATION SPECIALIST Primary Care Provider Source Comments [facility] [employer],non-owned Affiliates and Associated Physician Practices is amultiple site organization consisting of ambulatory clinics and hospital sitesin [place], [place] and [place]. This disclosure is being madepursuant to the Care Everywhere program and may not contain all information available regarding this patient. Last updated 18.[facility] [employer] Allergies Active Allergy Reactions Criticality Noted Date Comments Adhesive Sensitivity Unknown Contrast-Iodinated Agents For Ct/Other Palpitations Low 05/08/2013 Medications * Be aware that medications may not be up to date on this document. Alwaysverify current medications with the patient. Medication Sig Dispensed Refills Start Date End Date Status [place]-3 Fatty Acids (FISH OIL) 1200 MG Daily. Active calcium carbonate-vitamin D 600-400 MG-UNIT tablet daily. Active Multiple Vitamins-Minerals (CENTRUM SILVER) TABS once daily Active lisinopril (Prinivil; Zestril) 5 MG tablet Take 2 (two) tablets by mouth every morning 02/27/2023 Active ursodiol (Actigall) 300 MG capsuleIndications: Primary biliary cholangitis (HCC) Take 2 (two) capsules by mouth every morning AND 1 (one) capsule every evening. 360 capsule 3 07/19/2024 11/11/2025 Active Active Problems Problem Noted Date Diagnosed Date History of TIA (transient ischemic attack) and s troke 05/10/2023 12/15/2022 GERD (gastroesophageal reflux disease) 8 Overview (05/28/2018): Does not want treatment. 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 Overview (06/09/2023): 06/01/21 Fibroscan CAP 244, LSM 5.3 kPa 06/06/23 Fibroscan CAP 213, LSM 4.7 kPa Immunizations Name Administration Dates Next Due Covid Moderna primary monova lent 12+ yr 0.5mL 09/24/2021,02/03/2021,01/06/2021 Social History Tobacco Use Types Packs/Day Years Used Date Smoking Tobacco: Former Cigarettes 1 40 1 981 - 2020 Smokeless Tobacco: Never Tobacco Cessation:Counseling Given: Not Answered Alcohol Use Standard Drinks/Week Comments Yes 0 (1 standard drink = 0.6 oz pur e alcohol) SELDOM Sex and Gender Information Value Date Recorded Sex Assigned at Not on file Gender Identity Not on file Sexual Orientation Not on file Last Filed Vital Signs Vital Sign Reading Time Taken Comments Blood Pressure 139/69 06/06/2024 10:08 AM CDT Pulse 74 06/06/2024 10:08 AM CDT Temperature 36.3 C (97.3 F) 05/30/2022 11:08 AM CDT Respiratory Rate 18 06/06/2023 11:06 AM CDT Oxygen Saturation 98% 06/06/2024 10:08 AM CDT Inhaled Oxygen Concentration - - Weight 71.3 kg (157 lb 3.2 oz) 06/06/2024 10:08 AM CDT Height 172.7 cm (5' 8 ) 06/06/2024 10:08 AM CDT Body Mass Index 23.9 06/06/2024 10:08 AM CDT Plan of Treatment Upcoming Encounters Date Type Department Care Team (Late st Contact Info) Description 06/05/2025 11:00 AM CDT Office Visit [facility] - GI [address] [place] [address] Kim Syed, CROSS TIE CUTTER-RELOCATION SPECIALIST [address] [place] [address] [facility] [place] [address] Goals Goal Patient Goal Type Associated Problems Recent Progress Patient-Stated? Author Medication Management General On track( 022 11:16 AM CDT) No Juliane Gibbons RN Note: Expected end date: Ongoing Interventions: Take all medications as prescribed Let your doctor know right away about any changes in your medications Make sure to request a refill of your medication at least one week prior to your last dose Procedures Procedure Name Priority Date/Time Associated Diagnosis Comments LIPID PROFILE (EXTERAL RESULT ENTRY) Routine 05/30/2023 8:11 AM CDT from Last 3 Months or Most Recently Relevant to Health Maintenance Results * LIPID PROFILE (EXTERAL RESULT ENTRY) (05/30/2023 8:11 AM CDT) Cholesterol (EXTERNAL RESULT) 191 mg/dL OTHER LAB Triglycerides (EXTERNAL RESULT) 85 mg/dL OTHER LAB HDL (EXTERNAL RESULT) 61 mg/dL OTHER LAB LDL (EXTERNAL RESULT) 98 mg/dL OTHER LAB VLDL (EXTERNAL RESULT) OTHER LAB Chol HDL Ratio (External Result) OTHER LAB Blood BLOOD SPECIMEN / Unknown 05/30/2023 8:11 AM CDT Historical Provider LAB - CHEMISTRY O RDERABLES OTHER LAB from Last 3 Months or Most Recently Relevant to Health Maintenance Care Teams Cooling Room Attendant Relationship Specialty Start Date End Date Harpreet Wild, CROSS TIE CUTTER-RELOCATION SPECIALIST [address] [place] [address] PCP - General Nurse Practitioner 06/06/24
--- OUTSIDE RECORDS SUMMARY | 2025-01-08 09:34 | XMS_ITS | Clinical Summary ---
Author Organization [facility] [employer] Address [address] [place] [address] Care Team Providers Care Head Of Academic Technology Name Role Phone Harpreet Wild APRN-ADULT AND PEDIATRIC NEUROLOGIST Primary Care Provider Source Comments [facility] [employer],non-owned Affiliates and Associated Physician Practices is amultiple site organization consisting of ambulatory clinics and hospital sitesin [place], [place], [place] and [place]. This disclosure is being madepursuant to the Care Everywhere program and may not contain all information available regarding this patient. Last updated 18.[facility] [employer] Allergies Active Allergy Reactions Criticality Noted Date Comments Adhesive Sensitivity Unknown Contrast-Iodinated Agents For Ct/Other Palpitations Low 05/08/2013 Medications * Be aware that medications may not be up to date on this document. Alwaysverify current medications with the patient. Medication Sig Dispensed Refills Start Date End Date Status [place]-3 Fatty Acids (FISH OIL) 1200 MG Daily. [...] Description 06/05/2025 11:00 AM CDT Office Visit [facility] - [facility] [address] [place] [address] Kim Syed, CYLINDER BLOCK HOLE RELINER-ADULT AND PEDIATRIC NEUROLOGIST [address] [place] [address] [address] [place] [address] Health Maintenance Due Date Last Done Comments BONE DENSITY TESTING 1954 COLOGUARD (AGES 45-75) - COL ON CA SCREENING 1954 COLON MONITORING 1954 COLONOSCOPY - COLON CA SCREENING 1954 CT COLONOGRAPHY - COLON CA SCREENING 1954 Colorectal Cancer Screening 1954 FIT - COLON CA SCREENING 1954 FLEX SIG - COLON CA SCREENING 1954 MAMMOGRAM 1954 HEPATITIS C SCREENING 12/07/1972 DTAP/TDAP/TD VACCINES (1 - Tdap) 1973 PNEUMOCOCCAL VACCINE 50+ (1 of 2 - PCV) 1973 ZOSTER VACCINE (1 of 2) 2004 HEPATITIS B VACCINE (1 of 3 - Risk 3-dose series) 2014 Respiratory Syncytial Virus (RSV) Vaccine Pt: or over 60 yrs (1 - Risk 60-74 years 1-dose series) 2014 COVID-19 VACCINE (4 - 2023-2 5 season) 2024 09/24/2021, 02/03/2021, 01/06/2021 INFLUENZA VACCINE (#1) 2024 DEPRESSION SCREENING 11/13/2024 MEDICARE AWV CALENDAR YEAR 2024 LIPID TESTING 05/30/2028 05/30/2023 HIB VACCINE Aged Out No longer eligi ble based on patient's age to complete this topic HPV VACCINE Aged Out No longer eligi ble based on patient's age to complete this topic MENINGOCOCCAL (Group B) VACCINE Aged Out No longer eligible b ased on patient's age to complete this topic MENINGOCOCCAL VACCINE Aged Out No yamel amada eligible based on patient's age to complete this topic Goals Goal Patient Goal Type Associated Problems Recent Progress Patient-Stated? Author Medication Management General On track( 022 11:16 AM CDT) No Juliane Gibbons, RN Note: Expected end date: Ongoing Interventions: [...] Recently Relevant to Health Maintenance Care Teams Head Of Academic Technology Relationship Specialty Start Date End Date Harpreet Wild, CYLINDER BLOCK HOLE RELINER-ADULT AND PEDIATRIC NEUROLOGIST [address] [place] [address] PCP - General Nurse Practitioner 06/06/24
--- OUTSIDE RECORDS SUMMARY | 2025-01-08 09:34 | XMS_ITS | Continuity of Care Document ---
Author Organization [facility] Address [address] [place] [address] [address] [place] [address] Phone Care Team Providers Care Water Filterer Name Role Phone Sanjeev Ovalles Unavailable Unavailable Procedures Procedure Date Office/outpatient Visit, Est Visual Field Examination(s) Eye Exam, New Patient Advance Directives Directive Yes / No Effective Date File Name No Information Encounters Encounter Description Practice Location Reason(s) For Visit Diagnoses Date Provider Providers Copied on Encounter Office/outpat ient Visit, Est [facility], [address] [place] [address] [address], [place], [place], [id number], tel:[phone] SEC [facility] No Information b-0 1-201 0 Josr Pace. [facility] [address], [address], [place], [place], [facility], . tel:[phone] [facility], [address] [place] [address] [address], [place], [place], [id number], [place] tel:[phone] SEC [facility] [place] No Information Aug-0 3-200 7 Josr Pace. [address] [facility] [address], [place], [address], [place]. tel:[phone] Referring Provider: Ethan [facility] [address], [place], [place], [facility]. tel:[phone] [facility] Eye [facility], [address], [place], [place], [id number], [place] tel:[phone] CPB [facility] No Information [address] Pace. [address] [facility] , [address], [place], [address], [place]. tel:[phone] Family History Family Member Type Diagnosis Age At Onset No Information Payers Payer name Insurance type Covered constitution party ID Authoriza tion(s) No Information Social History Type Description Quantity Date Captured Comments Sex Female Smoking Status No Information Chief Complaint And Reason For Visit No Information Reason For Referral Reason For Referral No Information History Of Present Illness Encounter Date Complaint History Of Prese nt Illness No Information Functional Status Date Functional Assessmen t No Information Instructions Date Instruction Additional Infor mation No Information Assessments Type Assessment Date No Information Patient Care Teams Name Effective Dates (start - stop) Status Members No Information
--- OUTSIDE RECORDS SUMMARY | 2025-01-08 09:34 | XMS_ITS | Patient Health Summary ---
Author Organization [facility] Address [address] [place] [address] Care Team Providers Care Station Examiner Name Role Phone Harpreet Wild APRN-SUGAR GRINDER Primary Care Provider Note from [facility],non-owned Affiliates and Associated Physician Practices is amultiple site organization consisting of ambulatory clinics and hospital sitesin [place], [place], [place] and [place]. This disclosure is being madepursuant to the Care Everywhere program and may not contain all information available regarding this patient. Last updated 18.[facility] Allergies * Adhesive Sensitivity(Unknown) * Contrast-Iodinated Agents For Ct/Other(Palpitations) -Low Criticality Medications * Be aware that medications may not be up to date on this document. Alwaysverify current medications with the patient. * [place]-3 Fatty Acids (FISH OIL) 1200 MG Daily. * calcium carbonate-vitamin D 600-400 MG-UNIT tablet daily. * Multiple Vitamins-Minerals (CENTRUM SILVER) TABS once daily * lisinopril (Prinivil; Zestril) 5 MG tablet(Started 02/27/2023) Take 2 (two) tablets by mouth every morning * ursodiol (Actigall) 300 MG capsule(Started 07/19/2024) Take 2 (two) capsules by mouth every morning AND 1 (one) capsule every evening. 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 Immunizations * Covid Moderna primary monovalent 12+ yr 0.5mL(Given 09/24/2021, 02/03/2021, 01/06/2021) Social History Tobacco Use Types Packs/Day Years Used Date Smoking Tobacco: Former Cigarettes 1 40 1 - 2020 Smokeless Tobacco: Never Tobacco Cessation:Counseling [...] Mass Index 23.9 06/06/2024 10:08 AM CDT Procedures * RI LIVER ELASTOGRAPHY(Performed 06/06/2023) Performed for Primary biliary cholangitis (HCC) * TSH (EXTERNAL RESULT ENTRY)(Performed 05/30/2023) * LIPID PROFILE (EXTERAL RESULT ENTRY)(Performed 05/30/2023) * CBC W DIFF (EXTERNAL RESULT ENTRY)(Performed 05/30/2023) * COMP MET PANEL (EXTERNAL RESULT ENTRY)(Performed 05/30/2023) * CBC W/O DIFFERENTIAL(Performed 09/06/2022) * HEPATIC FUNCTION PANEL(Performed 09/06/2022) * BASIC METABOLIC PANEL (CALCIUM TOTAL)(Performed 09/06/2022) * CBC W/O DIFFERENTIAL(Performed 05/24/2022) * HEPATIC FUNCTION PANEL(Performed 05/24/2022) * BASIC METABOLIC PANEL (CALCIUM TOTAL)(Performed 05/24/2022) * GGT(Performed 05/24/2022) * RI LIVER ELASTOGRAPHY(Performed 06/01/2021) Performed for Primary biliary cholangitis (HCC) * CBC W DIFF (EXTERNAL RESULT ENTRY)(Performed 05/19/2021) * CHEM PROFILE (EXTERNAL RESULT ENTRY)(Performed 05/19/2021) * CBC W AUTO DIFFERENTIAL(Performed 05/19/2020) * COMPREHENSIVE METABOLIC PANEL(Performed 05/19/2020) * COMPREHENSIVE METABOLIC PANEL(Performed 06/24/2019) Performed for Primary biliary cholangitis (HCC) * CBC W AUTO DIFFERENTIAL(Performed 06/24/2019) Performed for Primary biliary cholangitis (HCC) * CBC W AUTO DIFFERENTIAL(Performed 05/22/2019) * COMPREHENSIVE METABOLIC PANEL(Performed 05/22/2019) * CBC W AUTO DIFFERENTIAL(Performed 05/24/2018) * COMPREHENSIVE METABOLIC PANEL(Performed 05/24/2018) * COMPREHENSIVE METABOLIC PANEL(Performed 05/12/2017) * CBC W AUTO DIFFERENTIAL(Performed 05/12/2017) * COMPREHENSIVE METABOLIC PANEL(Performed 05/12/2016) * CBC W AUTO DIFFERENTIAL(Performed 05/12/2016) * COMPREHENSIVE METABOLIC PANEL(Performed 05/13/2015) * CBC W AUTO DIFFERENTIAL(Performed 05/13/2015) * CBC W AUTO DIFFERENTIAL(Performed 05/08/2014) * COMPREHENSIVE METABOLIC PANEL(Performed 05/08/2014) * COMPREHENSIVE METABOLIC PANEL(Performed 04/23/2013) * CBC W AUTO DIFFERENTIAL(Performed 04/23/2013) * PT-INR [facility](Performed 04/23/2013) * PATHOLOGY REPORTS - HPF HISTORICAL(Performed 06/19/2009) Results * RI LIVER ELASTOGRAPHY (06/06/2023 10:46 AM CDT) Narrative Art Rodriguez MD - 06/06/2023 10:46 AM CDT Art Rodriguez MD 06/09/2023 4:45 PM Diagnosis: Primary biliary cholangitis RN verified patient NPO for prior 3 hours. Procedure explained. Date of Exam: 06/06/2023 Liver Stiffness: (LSM, kPa) median: 4.7 IQR/Median% (ideally < 30%): 7% CAP (controlled attenuation parameter): 213 Technical Difficulty: None Ordering Provider: Dr. Henley Phone Fax Fibroscan interpretation: I have personally reviewed the Fibroscan report and associated tracings. The calculated Liver Stiffness Measurement (LSM, kPa) indicates that: The probability of advanced liver fibrosis is: low. The loss of ultrasound signal, (controlled attenuation parameter, CAP [dB/m]), indicates that the probability of hepatic steatosis is: low. Art Rosado MD The following criteria are used to indicate the probability of advanced (stage 3-4) fibrosis: < 7.0 kPa: low 7.0-8.9 kPa: low to moderate 9.0-14.9 kPa: moderate 15-20 kPa: high > 20 kPa: very high Liver stiffness > 20 kPa is also associated with a high probability of complications of portal hypertension including varices and ascites. Liver stiffness > 50 kPa is associated with a high risk of variceal bleeding. These interpretations are based on the following published data: Sheila PJ, Andrew M, Stacey M, et al. Accuracy of FibroScan controlled attenuation parameter and liver stiffness measurement in assessing steatosis and fibrosis in patients with nonalcoholic fatty liver disease. Gastroenterology 2019;156:5922-6788. Soraya GUILLAUME, Evaristo R, Van Natta ML, et al. Vibration-controlled transient elastography to assess fibrosis and steatosis in patients with nonalcoholic fatty liver disease. Clin Gastroenterol Hepatol 2019;17:156-163. Note that scores have been developed that incorporate the Fibroscan liver stiffness measurement from large cohorts of patients with liver biopsies to further refine the ability of Fibroscan to identify patients with HERRERA and advanced fibrosis. These include the FAST (Fibroscan-AST) score (Luis, 202) and the Agile3+ and Agile4 scores (Efra, 202). Luis TA, Van Natta ML, Owen M, Abel A, et al. Validation of the accuracy of the FAST score for detecting patients with at-risk nonalcoholic steatohepatitis (HERRERA) in a [place] cohort and comparison to other non-invasive algorithms. PLoS ONE (2021) 17: [id number]. Efra AJ, Aroldo J, Bay ZM, et al. Enhanced diagnosis of advanced fibrosis and cirrhosis in individuals with NAFLD using FibroScan-based Agile scores. J Hepatol (2022) 78: 247-259. Fibroscan LSM can also be used with laboratory parameters without formulas to assess prognosis. According to the Baveno-VII criteria (de Franchis, 202), Fibroscan LSM ?15 kPa plus a platelet count of ?[id number]/L rules out clinically significant portal hypertension (sensitivity and negative predictive value >90%) in patients with compensated advanced chronic liver disease. de Anthony R, Mildred J, Rajesh-Andra G, Bo T, Kike Murphy on behalf of the [facility] Faculty. [facility]--Renewing consensus in portal hypertension. J Hepatol (2021) 76: 959-974 Assessing the likelihood of advanced fibrosis in patients with indeterminate liver stiffness measurement (LSM) by Fibroscan (e.g., 8-15 kPa) can be improved by also calculating the FIB-4 score (Samuel et al. Hepatology Communications 2019;3:5970-6622) or NAFLD Fibrosis score (Milan et al. Clinical Gastroenterology and Hepatology 2019;17:0600-9695 using routine clinical data. Note: 1. Fibroscan cannot reliably identify earlier stages of fibrosis (ie distinguish F0 from F1 and F2) and thus a histologic stage cannot be predicted from the Fibroscan reading. 2. Liver stiffness can be increased by factors other than fibrosis including passive congestion, infiltrative processes, active alcoholism, recent moderate alcohol consumption in the 2 weeks before the exam, biliary obstruction and marked inflammation. The interpretation of the Fibroscan result provided above may not have taken such clinical factors into account. Disease etiology also influences Fibroscan cutoff values for fibrosis stages and the following cutoffs have been proposed (Diane et al, Clin Gastro Hepatol 2015; 13:27-36): Cutoffs for Stage 3 and Stage 4 fibrosis respectively: Hepatitis B: >9 and >11.7 kPa Hepatitis C: >9.5 and >12.5 kPa HCV-HIV: >11 and >14 kPa Cholestatic liver diseases: >10 and >17.9 kPa NAFLD/HERRERA: >10 and >14 kPa CAP estimates of steatosis: normal <200 dB/m mild 200 to 250 dB/m moderate 250-290 dB/m substantial > 290 dB/m (Note that Fibroscan is not a quantitative measure of liver fat.) These criteria are estimates and may change as additional supporting data becomes available. (This additional interpretive data was last updated 03/18/23.) [email or web address] Lamin Henley MD PROCEDURE/MINOR SURG ICAL ORDERABLES * (ABNORMAL) CBC W DIFF (EXTERNAL RESULT ENTRY) (05/30/2023 8:11 AM CDT) Only the most recent of2 resultswithin the time period is included. WBC (EXTERNAL RESULT) 4.2(A) 10^3/ul OTHER LAB Hemoglobin (EXTERNAL RESULT) 13.9 g/dl OTHER LAB Hematocrit (EXTERNAL RESULT) 42.1 % OTHER LAB Platelets (EXTERNAL RESULT) 217 10^3/ul OTHER LAB Neutrophil Absolute (EXTERNAL RESULT) OTHER LAB Blood BLOOD SPECIMEN / Unknown 05/30/2023 8:11 AM CDT Historical Provider LAB - HEMATOLOGY ORDERABLES Performing Organization Address City/[facility] Co de Phone Number OTHER LAB * (ABNORMAL) COMP MET PANEL (EXTERNAL RESULT ENTRY) (05/30/2023 8:11 AM CDT) Glucose (EXTERNAL) 97 mg/dL OTHER LAB Sodium (EXTERNAL RESULT) 142 mmol/L OTHER LAB Potassium (EXTERNAL RESULT) 4.6 mmol/L OTHER LAB Chloride (EXTERNAL RESULT) 102 mmol/L OTHER LAB CO2 (EXTERNAL) 35(A) mmol/L OTHER LAB Calcium (EXTERNAL RESULT) 9.4 mg/dL OTHER LAB Anion Gap (EXTERNAL RESULT) 5(A) mmol/L OTHER LAB BUN (EXTERNAL RESULT) 19(A) mg/dL OTHER LAB Creatinine (EXTERNAL RESULT) 0.60(A) mg/dl OTHER LAB Alkaline Phosphatase (EXTERNAL RESULT) 101 U/L OTHER LAB ALT (EXTERNAL RESULT) 30 U/L OTHER LAB AST (EXTERNAL RESULT) 35 U/L OTHER LAB Protein Total (EXTERNAL RESULT) 8.0 gm/dL OTHER LAB Albumin (EXTERNAL RESULT) 4.3 gm/dL OTHER LAB Bilirubin Total (EXTERNAL RESULT) 0.6 mg/dL OTHER LAB eGFR MDRD (EXTERNAL RESULT) >60 mL/min/1.7 3m2 OTHER LAB eGFR (EXTERNAL) OTHER LAB Blood BLOOD SPECIMEN / Unknown 05/30/2023 8:11 AM CDT Historical Provider LAB - CHEMISTRY O RDERABLES OTHER LAB * LIPID PROFILE (EXTERAL RESULT ENTRY) (05/30/2023 8:11 AM CDT) Pathologist [facility] Cholesterol (EXTERNAL RESULT) 191 mg/dL OTHER LAB Triglycerides (EXTERNAL RESULT) 85 mg/dL OTHER LAB HDL (EXTERNAL RESULT) 61 mg/dL OTHER LAB LDL (EXTERNAL RESULT) 98 mg/dL OTHER LAB VLDL (EXTERNAL RESULT) OTHER LAB Chol HDL Ratio (External Result) OTHER LAB Blood BLOOD SPECIMEN / Unknown 05/30/2023 8:11 AM CDT Historical Provider MD LAB - CHEMISTRY O RDERABLES OTHER LAB * TSH (EXTERNAL RESULT ENTRY) (05/30/2023 8:11 AM CDT) Pathologist [facility] TSH (EXTERNAL RESULT) 1.080 uIU/mL OTHER LAB Blood BLOOD SPECIMEN / Unknown 05/30/2023 8:11 AM CDT Historical Provider MD LAB - CHEMISTRY O RDERABLES Performing Organization Address City/[facility]/ZIP Co de Phone Number OTHER LAB * CBC W/O DIFFERENTIAL (09/06/2022 10:05 AM CDT) Only the most recent of2 resultswithin the time period is included. [facility] White Blood Cell Count 5.2 3.8 - 10.8 Thousand/u L [facility] RBC 4.48 3.80 - 5.10 Million/uL [facility] Hemoglobin 13.4 11.7 - 15.5 g/dL [facility] Hematocrit 40.6 35.0 - 45.0 % [facility] MCV 90.6 80.0 - 100.0 fL [facility] MCH 29.9 27.0 - 33.0 pg [facility] MCHC 33.0 32.0 - 36.0 g/dL [facility] RDW 11.8 11.0 - 15.0 % [facility] Platelet Count 228 140 - 400 Thousand/u L [facility] MPV 10.2 7.5 - 12.5 fL [facility] Comment: Test Performed at: [facility] [address] [place] [address] RICHA GUERRERO DO,MPH 09/06/2022 10:0 5 AM CDT 09/06/2022 10:06 AM CDT Lamin Henley MD LAB - HEMATOLOGY ORD ERABLES Performing Organization Address [facility] Co de Phone Number [facility] [address] [place] [address] * BASIC METABOLIC PANEL (CALCIUM TOTAL) (09/06/2022 10:05 AM CDT) Only the most recent of2 resultswithin the time period is included. Glucose 81 65 - 99 mg/dL [facility] Comment: Fasting reference interval BUN 18 7 - 25 mg/dL [facility] Creatinine 0.65 0.50 - 1.05 mg/dL [facility] eGFR by Cystatin C 96 > OR = 60 mL/min/1. 73m2 [facility] Comment: The eGFR is based on the CKD-EPI 2020 equation. To calculate the new eGFR from a previous Creatinine or Cystatin C result, go to https://www.kidney.org/professionals/ kdoqi/gfr%5Fcalculator BUN/Creatinine Ratio NOT APPLICABLE 6 - 22 (calc) [facility] Sodium 141 135 - 146 mmol/L [facility] Potassium 4.8 3.5 - 5.3 mmol/L [facility] Chloride 104 98 - 110 mmol/L [facility] CO2 30 20 - 32 mmol/L [facility] Calcium 9.4 8.6 - 10.4 mg/dL [facility] Comment: Test Performed at: [facility] [address] [place] [address] RICHA GUERRERO DO,MPH 09/06/2022 10:0 5 AM CDT 09/06/2022 10:06 AM CDT Lamin Henley MD LAB - CHEMISTRY NAHID WOOD Performing Organization Address [facility] Co de Phone Number [facility] [address] [place] [address] * (ABNORMAL) HEPATIC FUNCTION PANEL (09/06/2022 10:05 AM CDT) Only the most recent of2 resultswithin the time period is included. Protein Total 6.9 6.1 - 8.1 g/dL [facility] Albumin 4.3 3.6 - 5.1 g/dL [facility] Globulin Total 2.6 1.9 - 3.7 g/dL (calc) [facility] Albumin/Globulin Ratio 1.7 1.0 - 2.5 (calc) [facility] Bilirubin Total 0.7 0.2 - 1.2 mg/dL [facility] Bilirubin Direct 0.1 < OR = 0.2 mg/dL [facility] Bilirubin Indirect 0.6 0.2 - 1.2 mg/dL (calc) [facility] Alkaline Phosphatase 94 37 - 153 U/L [facility] AST 28 10 - 35 U/L [facility] ALT 31(H) 6 - 29 U/L [facility] Comment: Test Performed at: [facility] [employer] [place] [address] RICHA GUERRERO DO,MPH 09/06/2022 10:0 5 AM CDT 09/06/2022 10:06 AM CDT Lamin Henley MD LAB - CHEMISTRY NAHID WOOD Performing Organization Address [facility] de Phone Number [facility] [address] [place] [address] * GGT (05/24/2022 7:05 AM CDT) GGT 31 3 - 65 U/L [facility] Comment: Test Performed at: [facility] [employer] [place] [address] RICHA GUERRERO DO,MPH 05/24/2022 7:05 AM CDT 05/24/2022 7:05 AM CDT Lamin Henley MD LAB - CHEMISTRY NAHID WOOD Performing Organization Address [facility] Co de Phone Number [address] [address] * RI LIVER ELASTOGRAPHY (06/01/2021 11:22 AM CDT) Narrative Art Rosado MD - 06/01/2021 11:22 AM CDT Art Rosado MD 06/02/2021 6:13 PM Diagnosis: PBC RN verified patient NPO for prior 3 hours. Procedure explained and consent signed. Date of Exam: 06/01/2021 Liver Stiffness: (LSM, kPa) median: 5.3 IQR (interquartile range): 0.7 IQR/Median% (ideally < 30%): 13 CAP (controlled attenuation parameter): 244 Technical Difficulty: None Ordering Provider: Lamin Henley MD Phone Fax Fibroscan interpretation: I have personally reviewed the Fibroscan report and associated tracings. The calculated Liver Stiffness Measurement (LSM, kPa) indicates that: The probability of advanced liver fibrosis is: low. The loss of ultrasound signal, (controlled attenuation parameter, CAP [dB/m]), indicates that the probability of hepatic steatosis is: moderate. Art Rosado MD The following criteria are used to indicate the probability of advanced (stage 3-4) fibrosis: < 7.0 kPa: low 7.0-8.9 kPa: low to moderate 9.0-14.9 kPa: moderate 15-20 kPa: high > 20 kPa: very high Liver stiffness > 20 kPa is also associated with a high probability of complications of portal hypertension including varices and ascites. Liver stiffness > 50 kPa is associated with a high risk of variceal bleeding. These interpretations are based on the following published data: Sheila PJ, Andrew M, Stacey M, et al. Accuracy of FibroScan controlled attenuation parameter and liver stiffness measurement in assessing steatosis and fibrosis in patients with nonalcoholic fatty liver disease. Gastroenterology 2019;156:7030-4407. Soraya MS, Evaristo R, Van Yesyta ML, et al. Vibration-controlled transient elastography to assess fibrosis and steatosis in patients with nonalcoholic fatty liver disease. Clin Gastroenterol Hepatol 2019;17:156-163. Note: 1. Fibroscan cannot reliably identify earlier stages of fibrosis (ie distinguish F0 from F1 and F2) and thus a histologic stage cannot be predicted from the Fibroscan reading. 2. Assessing the likelihood of advanced fibrosis in patients with indeterminate liver stiffness measurement (LSM) by Fibroscan (e.g., 8-15 kPa) can be improved by also calculating the FIB4 score (Davyduke et al. Hepatology Communications 2019;3:1222-6791) or NAFLD Fibrosis score (Milan et al. Clinical Gastroenterology and Hepatology 2019;17:5718-6910. from routine clinical data. 3. Liver stiffness can be increased by factors other than fibrosis including passive congestion, infiltrative processes, active alcoholism, biliary obstruction and marked inflammation. The interpretation of the Fibroscan result provided above may not have taken such clinical factors into account. Disease etiology also influences Fibroscan cutoff values for fibrosis stages and the following cutoffs have been proposed (Diane et al, Clin Gastro Hepatol 2015; 13:27-36): Cutoffs for Stage 3 and Stage 4 fibrosis respectively: Hepatitis B: >9 and >11.7 kPa Hepatitis C: >9.5 and >12.5 kPa HCV-HIV: >11 and >14 kPa Cholestatic liver diseases: >10 and >17.9 kPa NAFLD/HERRERA: >10 and >14 kPa CAP estimates of steatosis: normal <200 dB/m mild 200 to 250 dB/m moderate 250-290 dB/m substantial > 290 dB/m (Note that Fibroscan is not a quantitative measure of liver fat.) These criteria are estimates and may change as additional supporting data becomes available. [email or web address] [email or web address] medical [email or web address] [email or web address] Lamin Henley MD PROCEDURE/MINOR SURG ICAL ORDERABLES * (ABNORMAL) CHEM PROFILE (EXTERNAL RESULT ENTRY) (05/19/2021) Glucose (EXTERNAL RESULT) 86 mg/dl BUN (EXTERNAL RESULT) 14 mg/dl Creatinine (EXTERNAL RESULT) 0.70 mg/dl Sodium (EXTERNAL RESULT) 141 mmol/L Potassium (EXTERNAL RESULT) 4.7 mmol/L Chloride (EXTERNAL RESULT) 101 mmol/L Carbon Dioxide (EXTERNAL RESULT) 34(H) 20 - 32 mmol/L Calcium (EXTERNAL RESULT) 9.5 mg/dl Phosphorus (EXTERNAL RESULT) Total Protein (EXTERNAL RESULT) 6.6 g/dl Albumin (EXTERNAL RESULT) 3.9 g/dl Alkaline Phosphatase (EXTERNAL RESULT) 104 U/L ALT (EXTERNAL RESULT) 23 units/L AST (EXTERNAL RESULT) 25 units/L Bilirubin Total (EXTERNAL RESULT) 0.6 mg/dl Bilirubin Direct (EXTERNAL RESULT) 0.1 mg/dl Bilirubin Indirect (EXTERNAL RESULT) 0.5 mg/dl Magnesium (EXTERNAL RESULT) Blood BLOOD SPECIMEN / Unknown 05/19/2021 Historical Provider LAB - CHEMISTRY O RDERABLES * CBC WITH DIFFERENTIAL (05/19/2020 7:27 AM CDT) Only the most recent of9 resultswithin the time period is included. [facility] White Blood Cell Count 5.6 3.8 - 10.8 Thousand/u L [facility] RBC 4.52 3.80 - 5.10 Million/uL [facility] Hemoglobin 13.9 11.7 - 15.5 g/dL [facility] Hematocrit 43.1 35.0 - 45.0 % [facility] MCV 95.4 80.0 - 100.0 fL [facility] MCH 30.8 27.0 - 33.0 pg [facility] MCHC 32.3 32.0 - 36.0 g/dL [facility] RDW 11.7 11.0 - 15.0 % [facility] Platelet Count 235 140 - 400 Thousand/u L [facility] MPV 9.7 7.5 - 12.5 fL [facility] Neutrophil Absolute 3567 1500 - 7800 cells/uL [facility] Absolute Bands [facility] Metamyelocytes Absolute [facility] Myelocytes Absolute [facility] Absolute Prolymphocytes [facility] Lymphocytes Absolute 1445 850 - 3900 cells/uL [facility] Absolute Monocytes 470 200 - 950 cells/uL [facility] Eosinophils Absolute 78 15 - 500 cells/uL [facility] Basophils Absolute 39 0 - 200 cells/uL [facility] Absolute Blasts [facility] nRBC Absolute [facility] Granulocytes % 63.7 % [facility] Band Neutrophil [facility] Metamyelocytes [facility] Myelocytes [facility] Promyelocytes [facility] Lymphocytes % 25.8 % [facility] Lymphocyte Reactive [facility] Monocytes % 8.4 % [facility] Eosinophils % 1.4 % [facility] Basophils % 0.7 % [facility] Comment: REPORT COMMENT: FASTING:YES Test Performed at: [facility] [address] [place] [address] RICHA GUERRERO DO,MPH Blasts [facility] nRBC [facility] Comments [facility] Comment: REPORT COMMENT: FASTING:YES Test Performed at: [facility] [address] [place] [address] RICHA GUERRERO DO,MPH 05/19/2020 7:27 AM CDT 05/19/2020 7:27 AM CDT Robert Perez MD LAB - HEMATOLOGY ORD ERABLES [facility] [address] [place] [address] * COMPREHENSIVE METABOLIC PANEL (05/19/2020 7:27 AM CDT) Only the most recent of9 resultswithin the time period is included. [facility] Glucose 90 65 - 99 mg/dL [facility] Comment: Fasting reference interval BUN 22 7 - 25 mg/dL [facility] Creatinine 0.67 0.50 - 0.99 mg/dL [facility] Comment: For patients >49 years of age, the reference limit for Creatinine is approximately 13% higher for people identified as -Pakistani. eGFR by MDRD 92 > OR = 60 mL/min/1 .73m2 [facility] eGFR by MDRD 107 > OR = 60 mL/min/1 .73m2 [facility] BUN/Creatinine Ratio NOT APPLICABLE 6 - 22 (calc) [facility] Sodium 142 135 - 146 mmol/L [facility] Potassium 4.7 3.5 - 5.3 mmol/L [facility] Chloride 104 98 - 110 mmol/L [facility] CO2 32 20 - 32 mmol/L [facility] Calcium 9.5 8.6 - 10.4 mg/dL [facility] Protein Total 6.6 6.1 - 8.1 g/dL [facility] Albumin 4.2 3.6 - 5.1 g/dL [facility] Globulin Total 2.4 1.9 - 3.7 g/dL (calc) [facility] Albumin/Globulin Ratio 1.8 1.0 - 2.5 (calc) [facility] Bilirubin Total 0.6 0.2 - 1.2 mg/dL [facility] Alkaline Phosphatase 92 37 - 153 U/L [facility] AST 22 10 - 35 U/L [facility] ALT 22 6 - 29 U/L [facility] Comment: Test Performed at: [facility] [address] [place] [address] RICHA GUERRERO DO,MPH 05/19/2020 7:27 AM CDT 05/19/2020 7:27 AM CDT Robert Perez MD LAB - CHEMISTRY NAHID WOOD [facility] [address] [place] [address] * PT-INR U (04/23/2013 9:16 AM CDT) [facility] INR 1.0 [facility] ([facility]) Comment: Reference Range 0.9-1.1 Moderate-intensity Warfarin Therapy 2.0-3.0 Higher-intensity Warfarin Therapy 3.0-4.0 PT 10.0 9.0 - 11.5 sec [facility] ([facility]) Comment: REPORT COMMENT: FASTING Test Performed at: [facility] [address] [place] [address] RICHA GUERRERO DO, MPH 04/23/2013 9:16 AM CDT 04/23/2013 9:17 AM CDT Robert Perez MD LAB - COAGULATION OR DERABLES [facility] ([facility]) * PATHOLOGY REPORTS - HPF HISTORICAL (06/19/2009 11:38 AM CDT) 06/19/2009 11:3 8 AM CDT Narrative [facility] - 06/19/2009 11:38 AM CDT Robert Perez MD LAB - PATHOLOGY/CYTO LOGY ORDERABLES [facility] Care Teams Station Examiner Relationship Specialty Start Date End Date Harpreet Wild, HOME CARE MANAGER RN-SUGAR GRINDER [address] [place] [address] PCP - General Nurse Practitioner 06/06/24
== END 2025-01-08 08:57 | disposition home or self-care (01) ==
PROVIDERS: PCP Nurse Practitioner; Visit Provider Nurse Practitioner
DX: M16.12 Unilateral primary osteoarthritis, left hip (principal)
CPT/HCPCS: 73502

== ENCOUNTER 2025-02-10 08:33 | Outpatient (CLI) | payer MEDICARE, SELFPAY ==
--- NOTE | ~2025-02-10 | MR_ITS ---
EXAMINATION: MR hip LT wo con DATE: 02/10/2025 09:37 INDICATION: Left hip sprain present with 2 months of left groin pain TECHNIQUE: Magnetic resonance imaging (MRI) of the left hip was performed without intravenous contra st. Sequences included full-field axial PD-weighted FS FSE and T1-weighted FSE, coronal of the pelvis with PD-weighted FS FSE, small field of view of the left hip with axial PD-weighted FS FSE, sagitta l PD-weighted FS FSE and coronal PD weighted FS FSE. Additional radial T1-weighted FGR oriented ortho gonal to the acetabular rim were obtained for evaluation of the labrum. COMPARISON: None FINDINGS: Bones/labrum/cartilage: Alignment is normal. No fracture, avascular necrosis or pathologic marrow replacing process. There i s moderate osteoarthritis at the left hip with nonuniform cartilage loss most prominent posteriorly w here there is Mild subarticular cystlike change at the posterior rim of the acetabulum. There is additional high-gr liliana chondromalacia with subarticular edema-like signal change at the anterosuperior left acetabulum. Corresponding anterosuperior and posterior to posterior superior labral degeneration. Less severe mil d osteoarthritis suggested at the contralateral right hip but not diagnostically evaluated on the lar amada [id number] imaging. Focal asymmetric mild cystic change at the bilateral anterosuperior femora l head neck junctions. Fluid: Very small left hip joint effusion. Physiologic amount fluid in the right hip joint. There is also mi ld increased fluid signal overlying the bilateral greater trochanters consistent with minimal bilater al trochanteric bursitis. Soft tissues: Normal and symmetric muscle bulk and signal in the pelvis and visualized proximal thighs. The iliopso as, gluteal and proximal hamstring tendons are normal. Limited evaluation of visceral organs of the p josey is unremarkable. No pathologically enlarged pelvic/inguinal lymphadenopathy. IMPRESSION: 1. Moderate left hip osteoarthritis with associated likely chronic labral degeneration and very small joint effusion. Reviewed, dictated and finalized at location B. IMPRESSION: 1. Moderate left hip osteoarthritis with associated likely chronic labral degen eration and very small joint effusion.
== END 2025-02-10 08:34 | disposition home or self-care (01) ==
LOC: MICIMG 08:34
PROVIDERS: PCP Nurse Practitioner; Visit Provider Orthopaedic Surgery
DX: S73.192A Other sprain of left hip, initial encounter (principal); X58.XXXA Exposure to other specified factors, initial encounter; M16.12 Unilateral primary osteoarthritis, left hip
CPT/HCPCS: 73721

== ENCOUNTER 2025-05-29 07:14 | Outpatient (CLI) | payer MEDICARE, SELFPAY ==
--- OUTSIDE RECORDS SUMMARY | 2025-05-29 07:16 | XMS_ITS | Clinical Summary ---
Author Organization [facility] Address [address] [place] [address] Care Team Providers Care Customer Project Manager Name Role Phone Harpreet Wild APRN-REAL ESTATE RECRUITER Primary Care Provider Source Comments [facility],non-owned Affiliates and Associated Physician Practices is amultiple site organization consisting of ambulatory clinics and hospital sitesin [place], [place], [place] and [place]. This disclosure is being madepursuant to the Care Everywhere program and may not contain all information available regarding this patient. Last updated 18.[facility] Allergies Active Allergy Reactions Criticality Noted Date Comments Adhesive Sensitivity Unknown Contrast-Iodinated Agents For Ct/Other Palpitations Low 05/08/2013 Medications * Be aware that medications may not be up to date on this document. Alwaysverify current medications with the patient. Fertile-3 Fatty Acids (FISH OIL) 1200 MG Daily. Active calcium carbonate-vitami n D 600-400 MG-UNIT tablet daily. Activ e Multiple Vitamins-Mineral s (CENTRUM SILVER) TABS once daily Active lisinopril (Prinivil; Zestril) 5 MG tablet Take 2 (two) tablets by mouth every morning 3 Active ursodiol (Actigall) 300 MG capsuleIndicatio ns:Primary biliary cholangitis (HCC) Take 2 (two) capsules by mouth every morning AND 1 (one) capsule every evening. 360 capsule 3 4 11/11/20 25 Active Active Problems Problem Noted Date Diagnosed Date History of TIA (transient ischemic attack) and s troke 05/10/2023 12/15/2022 GERD (gastroesophageal reflux disease) 8 Overview (05/28/2018): Does not want treatment. 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 Overview (06/09/2023): 06/01/21 Fibroscan CAP 244, LSM 5.3 kPa 06/06/23 Fibroscan CAP 213, LSM 4.7 kPa Immunizations Immunization Administration Dates Next Due Covid Moderna primary monova lent 12+ yr 0.5mL 09/24/2021,02/03/2021,01/06/2021 Social History Tobacco Use Types Packs/Day Years Used Date Smoking Tobacco: Former Cigarettes 1 40 1 - 2020 Smokeless Tobacco: Never Tobacco Cessation:Counseling Given: Not Answered Alcohol Use Standard Drinks/Week Comments Yes 0 (1 standard drink = 0.6 oz pur e alcohol) SELDOM Comments Unknown Sex and Gender Information Value Date Recorded Sex Assigned at Not on file Legal Sex Female 5:34 PM GOPHERMAN Gender Identity Not on file Sexual Orientation [...] 10:08 AM CDT Height 172.7 cm (5' 8) 06/06/2024 10:08 AM CDT Body Mass Index 23.9 06/06/2024 10:08 AM CDT Plan of Treatment Upcoming Encounters Date Type Department Care Team (Late st Contact Info) Description 06/05/2025 11:00 AM CDT Office Visit [facility] [address] [place] [address] Kim Syed, WATCH MECHANIC-REAL ESTATE RECRUITER [address] [place] [address] [facility] [place] [address] Health Maintenance Due Date Last Done Comments [...] 2023-2 5 season) 2024 09/24/2021, 02/03/2021, 01/06/2021 DEPRESSION SCREENING 11/13/2024 MEDICARE AWV CALENDAR YEAR 2024 INFLUENZA VACCINE (#1) 2025 LIPID TESTING 05/30/2028 05/30/2023 HIB VACCINE Aged Out No longer eligi ble based on patient's age to complete this topic HPV VACCINE Aged Out No longer eligi ble based on patient's age to complete this topic MENINGOCOCCAL (Group B) VACCINE SHARED DECISION-MAKING Aged Out No longer eligible based on patient's age to complete this topic MENINGOCOCCAL GROUPS A/C/Y/W VACCINE Aged Out No longer eligible b ased on patient's age to complete this topic Goals Goal Patient Goal Type Associated Problems Recent Progress Patient-Stated? Author Medication Management General On track( 022 11:16 AM CDT) Juliane García, RN Note: Expected end date: Ongoing Interventions: [...] SPECIMEN / Unknown 05/30/2023 8:11 AM CDT us Historical Provider LAB - CHEMISTRY ORDERABLE S Final Result Performing Organization Address City/State/[facility] [[email or web address]] de Phone Number OTHER LAB from Last 3 Months or Most Recently Relevant to Health Maintenance Insurance [facility] MANAGED MEDICARE [facility]V [facility] Care Teams Customer Project Manager Relationship Specialty Start Date End Date Harpreet Wild APRN-JOSLYN [address] [place] [address] PCP - General Nurse Practitioner 06/06/24
--- OUTSIDE RECORDS SUMMARY | 2025-05-29 07:16 | XMS_ITS | Continuity of Care Document ---
Author Organization [facility] Address [address] [place] [address] [address] [place] [address] Phone Care Team Providers Care Molding Press Operator Name Role Phone Sanjeev Ovalles Unavailable Unavailable Procedures Procedure Date Office/outpatient Visit, Est Visual Field Examination(s) Eye Exam, New Patient Advance Directives Directive Yes / No Effective Date File Name No Information Encounters Encounter Description Practice Location Reason(s) For Visit Diagnoses Date Provider Providers Copied on Encounter Office/outpat ient Visit, Est [facility], [address] [place] [address] [address], [place], [place], [id number], tel:[phone] SEC [facility] No Information Feb-0 1-201 0 Josr Pace. [facility] [address], [address], [place], [place], [facility], . tel:[phone] [facility], [address] [place] [address] [address], [place], [place], [id number], [place] tel:[phone] [facility] [place] No Information Oct-0 3-200 7 Josr Pace. [address] [facility] [address], [place], [address], [place]. tel:[phone] Referring Provider: Ethan Garcia [facility] [address], [place], [place], [facility]. tel:[phone] [facility], [address], [place], [place], [id number], [place] tel:[phone] [facility] No Information 7[address] Ag[address]akieran Pace. [address] [facility] [address] [facility] [address] [facility] , [address], [place], [address], [place]. tel:[phone] Family History Family Member Type Diagnosis Age [...]
[2025-05-29 08:18] LABS: Hematocrit 39.5 % (37.0-47.0); Hemoglobin 13.2 g/dL (12.0-15.0); Mean Corpuscular HGB Conc 33.4 g/dl (32-36); Mean Corpuscular Hemoglobin 30.8 pg (26-34); Mean Corpuscular Volume 92.1 fl (80-100); Platelet Count Result 187 k/mm3 (150-375); Red Blood Count 4.29 M/mm3 (4.2-5.4); White Blood Count 3.7 K/mm3 (4.5-10.0)
[2025-05-29 08:39] LABS: Alanine Aminotransferase 24 U/L (6-35); Albumin Level 3.9 g/dL (3.5-5.1); Alkaline Phosphatase 81 U/L (38-126); Anion Gap 4 mmol/L (4-12); Aspartate Amino Transferase 41 U/L (14-36); Bilirubin,Total 0.8 mg/dL (0.2-1.3); Blood Urea Nitrogen 19 mg/dL (7-17); Calcium 9.4 mg/dL (8.4-10.2); Carbon Dioxide 31 mmol/L (22-30); Chloride 104 mmol/L (98-107); Cholesterol 155 mg/dL (0-200); Estimated Glomerular Filt Rate > 60; Glucose 85 mg/dL (65-110); HDL Direct 52 mg/dL; Potassium 4.0 mmol/L (3.4-5.0); Sodium 139 mmol/L (137-145); Total Protein 7.0 g/dL (6.3-8.2); Triglycerides 72 mg/dL (<150)
[2025-05-29 09:14] LABS: Thyroid Stimulating Hormone 1.660 uIU/mL (0.465-4.680)
== END 2025-05-29 07:15 | disposition home or self-care (01) ==
LOC: ANHLAB 07:15
PROVIDERS: PCP Nurse Practitioner; Visit Provider Nurse Practitioner
DX: K74.3 Primary biliary cirrhosis (principal); E78.5 Hyperlipidemia, unspecified
CPT/HCPCS: 36415; 80053; 80061; 84443; 85027

== ENCOUNTER 2025-07-07 07:57 | Outpatient (CLI) | payer MEDICARE, SELFPAY ==
--- NOTE | ~2025-07-07 | DEXA_ITS ---
Bone Density Report Name: BYRON FERNANDES Age: 69 Sex: Female Ethnicity: White Date of : 1955 Indication: osteopenia; height loss; Referring Provider: Bk Sorto Study: Bone densitometry was performed. Exam Date: July 07, 2025 Accession number: [id number] Bone Density: Region BMD T-score Z-score Classification AP Spine(L1-L4) 0.752 -2.7 -0.5 Osteoporosis Femoral Neck (Left) 0.635 -1.9 -0.1 Osteopenia Total Hip (Left) 0.767 -1.4 0.1 Osteopenia Femoral Neck (Right) 0.617 -2.1 -0.3 Osteopenia Total Hip (Right) 0.761 -1.5 0.1 Osteopenia Total Hip Mean 0.764 -1.5 0.1 Osteopenia World Health Organization criteria for BMD impression classify patients as: Normal (T-score at or above -1.0), Osteopenia (T-score between -1.0 and -2.5), or Osteoporosis (T-score at or below -2.5). 10-year Fracture Risk: FRAX not reported because: Some T-score for Spine Total or Hip Total or Femoral Neck at or below -2.5 Previous Exams: -- Region Exam Age BMD T-score BMD Change BMD Change Date g/cm2 vs Baseline vs Previous -- AP Spine (L1-L4) 07/07/2025 69 0.752 -2.7 -6.1%* -6.1%* 07/12/2022 66 0.800 -2.2 Total Hip(Left) 07/07/2025 69 0.767 -1.4 -3.9%* -3.9%* 07/12/2022 66 0.798 -1.2 Total Hip(Right) 07/07/2025 69 0.761 -1.5 -8.1%* -8.1%* 07/12/2022 66 0.828 -0.9 -- *Denotes significance at 95% confidence level, LSC for AP Spine = 0.022 g/cm2, LSC for Total Hip = 0.027 g/cm2 Clinical Information Provided by Patient: Has used the following medications: Vitamin D, Calcium Patient maximum height was 68.5 Menopause Age: 54 No regular weight bearing exercise Does not regularly consume dairy products Drinks caffeinated beverages Onset of menses at age 12 Number of children 1 Impression: The patient has osteoporosis, based on the Total Spine T-score. The BMD for the AP Spine (L1-L4) decreased, changing by -6.1% since the last DXA exam. The BMD for the Total Hip(Left) decreased, changing by -3.9% since the last DXA exam. The BMD for the Total Hip(Right) decreased, changing by -8.1% since the last DXA exam. Discussion: INCREASED RISK OF FRACTURE. BONE DENSITY IS UNDESIRABLY LOW AT ONE OR MORE SKELETAL SITES, CONSISTENT WITH POSTMENOPAUSAL OSTEOPOROSIS. This patient's lowest T-score meets the World Health Organization's (WHO) criteria for osteoporosis at one or more sites (T-score -2.5 or below). In untreated patients, the risk of osteoporotic fracture increases approximately two-fold for each 1.0 SD decrease in T-score. Low bone density is not the only risk factor for fracture; also consider factors such as patient's age, frailty or poor health, risk of falling, risk of injury, previous osteoporotic fracture, family history of osteoporosis, cigarette smoking, low body weight, etc. Not everyone with low bone mineral density has osteoporosis; osteomalacia and other metabolic bone disorders should also be considered. Patients who have osteoporosis should be evaluated for specific diseases and conditions (secondary causes) that may cause or contribute to bone loss. The [place] Association of Clinical Endocrinologists (AACE) and National Osteoporosis Foundation (NOF) recommend pharmacologic intervention for all postmenopausal women whose T-score is in this range. The patient should follow a healthful lifestyle (good nutrition with adequate calcium and vitamin D, and appropriate weight-bearing exercise). Follow-Up: Consider a repeat BMD and Vertebral Fracture Assessment (VFA) exam in 2 years or sooner if medically necessary, to reassess this patient's status. Reported by: XUAN on 07/07/2025 9:03:00 AM. Reviewed, dictated and finalized at location A.
== END 2025-07-07 07:58 | disposition home or self-care (01) ==
LOC: MICIMG 08:00
PROVIDERS: PCP Nurse Practitioner; Visit Provider Nurse Practitioner
DX: K74.3 Primary biliary cirrhosis (principal); M81.0 Age-related osteoporosis without current pathological fracture; M85.852 Other specified disorders of bone density and structure, left thigh; M85.851 Other specified disorders of bone density and structure, right thigh
CPT/HCPCS: 77080

== ENCOUNTER 2025-10-07 10:00 | Outpatient (CLI) | payer MEDICARE, SELFPAY ==
--- NOTE | ~2025-10-07 | MM_ITS ---
EXAMINATION: MM screening tonie BI w martin HISTORY: Screening TECHNIQUE: Craniocaudal and mediolateral oblique 3-D tomosynthesis images were obtained and synthetic 2-D images were generated. CAD analysis was submitted and interpreted. COMPARISON: 06/04/2024 BREAST PARENCHYMAL COMPOSITION: Dense: The breasts are heterogeneously dense, which may obscure small masses FINDINGS: There is no evidence of suspicious mass, calcification, or architectural distortion to suggest malignancy in either breast. There has been no suspicious interval change. IMPRESSION: 1. No mammographic evidence of malignancy. 2. Recommend routine screening mammography in one year. BI-RADS Category 1: Negative Reviewed, dictated and finalized at location O. ADJUSTER
== END 2025-10-07 10:01 | disposition home or self-care (01) ==
LOC: MICIMG 10:00
PROVIDERS: PCP Nurse Practitioner; Visit Provider Obstetrics & Gynecology
DX: Z12.31 Encounter for screening mammogram for malignant neoplasm of breast (principal)
CPT/HCPCS: 77063; 77067